=== PATIENT | female | born 1950 | race Hispanic/Latino ===

== ENCOUNTER 2018-07-04 12:42 | Emergency (ER) | payer MEDICARE ==
[~2018-07-04] VITALS: Ht 152.4 cm; Wt 54.4 kg
--- NOTE | 2018-07-04 14:05 | Diagnostic Imaging Report ---
EXAMINATION: PA and lateral views of the chest. COMPARISON: None CLINICAL HISTORY: Cough, flulike symptoms today DISCUSSION: Lines/tubes: None. Lungs: The lungs are well inflated and clear. There is no evidence of pneumonia or pulmonary edema. Pleura: There is no pleural effusion or pneumothorax. Heart and mediastinum: Cardiomediastinal silhouette is unremarkable. Pulmonary vasculature is normal. Bones and soft tissues: No acute bony abnormalities. Sternotomy wires. IMPRESSION: No acute cardiopulmonary abnormalities. Signed by: Dr. Alan Bell M.D. on 07/04/2018 2:01 PM
== END 2018-07-04 14:22 | disposition home or self-care (01) ==
LOC: FSED 12:42
DX: R05 Cough (principal); J20.9 Acute bronchitis, unspecified
CPT/HCPCS: 71046; 87400; 99284

== ENCOUNTER 2019-10-13 11:41 | Observation (INO) | payer MEDICARE ==
[~2019-10-13] VITALS: Ht 152.4 cm; Wt 64.6 kg
[2019-10-13] MEDS ORDERED: ASPIRIN 81 MG CHEW TAB PO ONE ×2 (12:45→13:30)
[2019-10-13 12:50] LABS: BASOPHILS # (AUTO) 0.1 (0.0-0.1); BASOPHILS % 0.4 % (0.0-1.0); EOSINOPHILS # (AUTO) 0.2 (0.0-0.4); EOSINOPHILS % 1.8 % (0.0-6.0); HEMATOCRIT 36.6 % (34.2-44.1); HEMOGLOBIN 11.2 g/dL (12.0-16.0); LYMPHOCYTES # (AUTO) 3.5 (1.0-3.2); LYMPHOCYTES % 29.6 % (18.0-39.1); MEAN CORPUSCULAR HEMOGLOBIN 25.6 pg (28-32); MEAN CORPUSCULAR HGB CONC 30.6 g/dL (31-35); MEAN CORPUSCULAR VOLUME 83.8 fL (81-99); MONOCYTES # (AUTO) 0.7 (0.2-0.8); MONOCYTES % 5.8 % (4.4-11.3); NEUTROPHILS # (AUTO) 7.2 (2.1-6.9); NEUTROPHILS % 61.9 % (38.7-80.0); PLATELET COUNT 281 x10e3/uL (140-360); RED BLOOD COUNT 4.37 x10e6/uL (3.6-5.1); RED CELL DISTRIBUTION WIDTH 13.9 % (11.7-14.4)
[2019-10-13 13:03] LABS: INR 0.88; PARTIAL THROMBOPLASTIN TIME 28.2 seconds (23.8-35.5); PROTHROMBIN TIME 12.4 seconds (11.9-14.5)
[2019-10-13 13:12] LABS: ALANINE AMINOTRANSFERASE 11 IU/L (0-55); ALBUMIN 3.6 g/dL (3.5-5.0); ALKALINE PHOSPHATASE 86 IU/L (40-150); ANION GAP 16.8 mmol/L (8-16); BLOOD UREA NITROGEN 17 mg/dL (7-26); BUN/CREATININE RATIO 22 (6-25); CALCIUM 9.5 mg/dL (8.4-10.2); CARBON DIOXIDE 22 mmol/L (22-29); CHLORIDE 105 mmol/L (98-107); CREATINE KINASE 89 IU/L (29-168); CREATININE, SERUM 0.78 mg/dL (0.57-1.11); EST GLOMERULAR FILTRATION RATE > 60 ML/MIN (60-); GLUCOSE 106 mg/dL (74-118); POTASSIUM 3.8 mmol/L (3.5-5.1); SODIUM 140 mmol/L (136-145)
[2019-10-13] MEDS ORDERED: MORPHINE SULFATE 2 MG/ML SYR 1ML IV STA (13:17)
[2019-10-13] MEDS ORDERED: ASPIRIN 81 MG CHEW TAB PO STA (13:17)
[2019-10-13] MEDS ORDERED: ENOXAPARIN SODIUM INJ 100 MG/ML SYR SC STA (13:17)
[2019-10-13] MEDS ORDERED: ONDANSETRON HCL INJ 2MG/ML 2ML 2 MG/ML VIAL IV STA (13:17)
[2019-10-13] MEDS ORDERED: SODIUM CHLORIDE 0.9% 1000ML 1,000 ML IV STA (13:17)
[2019-10-13] MEDS ORDERED: FAMOTIDINE 20 MG/2 ML VIAL IV STA (13:17)
[2019-10-13] MEDS ORDERED: MORPHINE SULFATE 2 MG/ML SYR 1ML IV PRN (13:30)
[2019-10-13] MEDS ORDERED: DEXTROSE 50% SYRINGE 50 ML IV PRN (13:30)
[2019-10-13] MEDS ORDERED: METOPROLOL TARTRATE 25 MG TAB PO SCH (13:30)
[2019-10-13] MEDS ORDERED: ONDANSETRON HCL INJ 2MG/ML 2ML 2 MG/ML VIAL IV PRN (13:30)
[2019-10-13] MEDS ORDERED: ENOXAPARIN SODIUM INJ 100 MG/ML SYR SC SCH (13:30)
[2019-10-13] MEDS ORDERED: NITROGLYCERIN 0.4 MG SUBL SL PRN (13:30)
[2019-10-13] MEDS ORDERED: SODIUM CHLORIDE FLUSH 10 ML SYR INJ PRN (13:30)
[2019-10-13] MEDS ORDERED: ATORVASTATIN CA40 MG PO (13:53)
[2019-10-13] MEDS ORDERED: METFORMIN HCL500 MG PO (13:53)
[2019-10-13] MEDS ORDERED: PROAIR HFA INH8.5 GM INH (13:53)
[2019-10-13] MEDS ORDERED: METOPROLOL SUCC50 MG PO (13:53)
[2019-10-13] MEDS ORDERED: LOSARTAN POTAS100 MG PO (13:53)
[2019-10-13] MEDS ORDERED: LATANOPROST2.5 ML OP (13:53)
[2019-10-13] MEDS: FAMOTIDINE 20 MG/2 ML VIAL IV SCH ×2 (14:05→21:39)
[2019-10-13 14:25] LABS: CLARITY,URINE SL CLOUDY (CLEAR); COLOR,URINE YELLOW (YELLOW); LEUKOCYTE ESTERASE ,URINE NEGATIVE (NEGATIVE); NITRITE,URINE POSITIVE (NEGATIVE); PROTEIN,URINE DIPSTICK NEGATIVE (NEGATIVE)
[2019-10-13 14:26] LABS: BILIRUBIN,URINE NEGATIVE (NEGATIVE); KETONES,URINE NEGATIVE (NEGATIVE); URINE UROBILINOGEN 0.2 mg/dL (0.2 - 1)
[2019-10-13 14:45] LABS: BACTERIA,URINE MANY /HPF; WBC,URINE (MAN) 0-5 /HPF (0-5)
[2019-10-13 15:05] LABS: MAGNESIUM 1.2 MG/DL (1.3-2.1)
--- NOTE | 2019-10-13 15:17 | Diagnostic Imaging Report ---
EXAM: CHEST SINGLE (NOT PORTABLE) DATE: 10/13/2019 12:41 PM INDICATION: Chest pain COMPARISON: None FINDINGS: There are post surgical changes from prior median sternotomy. The trachea is midline. There are mildly increased bibasilar opacities suggestive of atelectasis. There is no evidence for large focal consolidation, pneumothorax, or significant pleural effusion. The cardiomediastinal silhouette is within normal limits. No acute osseous abnormalities identified. IMPRESSION: Findings suggestive of bibasilar atelectasis. No other acute cardiopulmonary process identified. Signed by: Dr. Jeronimo Ball MD on 10/13/2019 3:13 PM
[2019-10-13] MEDS: ENOXAPARIN SOD INJ 60 MG/0.6 ML SYR SC SCH ×2 (15:25→21:40)
--- NOTE | 2019-10-13 15:55 | NUR ---
PT AMBU TO BATHROOM WITH STEADY GAIT. NO ACUTE DISTRESS.
--- NOTE | 2019-10-13 16:29 | NUR ---
PT GIVEN COFFEE AND BLANKET. NO ACUTE DISTRESS. COMFORT MEASURES GIVEN
[2019-10-13] MEDS: INSULIN REGULAR, HUMAN 100 UNIT/1 ML 3ML VIAL SQ SCH ×2 (17:06→21:00)
[2019-10-13] MEDS ORDERED: MAGNESIUM SULFATE 2GM/50ML 50 ML IV ONE (17:15)
[2019-10-13] MEDS: CEFTRIAXONE SOD 1 GM/NS 50 ML 50 ML IV SCH (17:23)
--- NOTE | 2019-10-13 19:15 | NUR ---
REPORT RECEIVED FROM NICOL MENDEZ; REPORT CALLED TO MS MENDEZ; TELE BOX #[id number] ATTACHED
[2019-10-13 20:30] VITALS: BP 180/75
--- NOTE | 2019-10-13 20:51 | NUR ---
SPOKE TO DR WILL ABOUT CHEST PAIN CONSULT. MD WILL SEE PATIENT TOMORROW. NO ORDER RECEIVED AT THIS TIME
--- NOTE | 2019-10-13 20:52 | NUR ---
SPOKE TO DR CEJA WHO IS CANNERY WORKER FOR DR SHEA FOR CHANGING ATTENDING. MD WILL SEE PATIENT TOMORROW
[2019-10-13 21:00] VITALS: BP 180/75
[2019-10-13 21:30] VITALS: BP 180/75
[2019-10-13] MEDS: METOPROLOL TARTRATE 25 MG TAB PO SCH (21:39)
[2019-10-13] MEDS: SIMVASTATIN 20 MG TAB PO SCH (21:44)
[2019-10-13 21:59] LABS: CREATINE KINASE MB 1.5 ng/mL (0-5.0)
[2019-10-14] VITALS (10 sets, daily range): BP systolic 123–183; BP diastolic 59–84
[2019-10-14 05:11] LABS: BASOPHILS % 0.4 % (0.0-1.0); EOSINOPHILS # (AUTO) 0.2 (0.0-0.4); EOSINOPHILS % 2.4 % (0.0-6.0); HEMATOCRIT 32.4 % (34.2-44.1); HEMOGLOBIN 10.1 g/dL (12.0-16.0); LYMPHOCYTES % 35.5 % (18.0-39.1); MEAN CORPUSCULAR HEMOGLOBIN 25.8 pg (28-32); MEAN CORPUSCULAR HGB CONC 31.2 g/dL (31-35); MEAN CORPUSCULAR VOLUME 82.7 fL (81-99); MONOCYTES # (AUTO) 0.6 (0.2-0.8); MONOCYTES % 6.9 % (4.4-11.3); NEUTROPHILS # (AUTO) 4.6 (2.1-6.9); NEUTROPHILS % 54.4 % (38.7-80.0); PLATELET COUNT 212 x10e3/uL (140-360); RED BLOOD COUNT 3.92 x10e6/uL (3.6-5.1); RED CELL DISTRIBUTION WIDTH 14.1 % (11.7-14.4)
[2019-10-14 05:29] LABS: ALANINE AMINOTRANSFERASE 10 IU/L (0-55); ALBUMIN 3.1 g/dL (3.5-5.0); ALBUMIN/GLOBULIN RATIO 1.1 (0.8-2.0); ALKALINE PHOSPHATASE 55 IU/L (40-150); ANION GAP 11.7 mmol/L (8-16); BLOOD UREA NITROGEN 13 mg/dL (7-26); BUN/CREATININE RATIO 17 (6-25); CALCIUM 8.9 mg/dL (8.4-10.2); CARBON DIOXIDE 26 mmol/L (22-29); CHLORIDE 105 mmol/L (98-107); CHOL/HDL RATIO 2.3 (3.0-3.6); CHOLESTEROL 122 MD/DL (0-199); CREATININE, SERUM 0.78 mg/dL (0.57-1.11); EST GLOMERULAR FILTRATION RATE > 60 ML/MIN (60-); GLUCOSE 152 mg/dL (74-118); HDL CHOLESTEROL 52 MG/DL (40-60); LDL CHOLESTEROL 48 MG/DL (60-130); MAGNESIUM 1.5 MG/DL (1.3-2.1); PHOSPHORUS 3.4 MG/DL (2.3-4.7); POTASSIUM 3.7 mmol/L (3.5-5.1); SODIUM 139 mmol/L (136-145); TRIGLYCERIDES 108 MG/DL (0-149)
[2019-10-14 05:47] LABS: CREATINE KINASE MB 2.1 ng/mL (0-5.0)
[2019-10-14] MEDS: INSULIN REGULAR, HUMAN 100 UNIT/1 ML 3ML VIAL SQ SCH ×4 (08:57→21:12)
[2019-10-14] MEDS: ASPIRIN 81 MG ENTERIC COATED PO SCH (09:02)
[2019-10-14] MEDS: FAMOTIDINE 20 MG/2 ML VIAL IV SCH ×2 (09:02→20:58)
[2019-10-14] MEDS: METOPROLOL TARTRATE 25 MG TAB PO SCH ×2 (09:03→20:59)
[2019-10-14] MEDS: ENOXAPARIN SOD INJ 60 MG/0.6 ML SYR SC SCH ×2 (09:03→20:59)
[2019-10-14] MEDS ORDERED: ENOXAPARIN SOD INJ 40 MG/0.4 ML SYR SC SCH (17:00)
[2019-10-14] MEDS: CEFTRIAXONE SOD 1 GM/NS 50 ML 50 ML IV SCH (17:04)
--- NOTE | 2019-10-14 17:32 | History and Physical ---
CHIEF COMPLAINT: Chest pain. HISTORY OF PRESENT ILLNESS: This is a 69-year-old female with known history of hypertension, hyperlipidemia, history of a CABG about 20 years ago, presented to the emergency room with complaints of chest pressure that began over the last two days. After further interview, the patient reports she has been having a chest pressure ongoing for the last 3 to 4 months. She did see Cardiology last November and has not followed up since then. She reports her chest pressure is substernal with no radiation. No associated nausea, vomiting. During my interview right now, she states her chest pain is all resolved. She denies any cough, congestion, or any recent infection or fever. The patient is seen and evaluated at bedside on the medical floor. She is currently doing well with no other issues at this time. REVIEW OF SYSTEMS: Pertinent positive: For chest pressure. The rest of the 14-point review of systems are reviewed with the patient and are negative. ALLERGIES: NO KNOWN DRUG ALLERGIES. MEDICATIONS: Albuterol, losartan 100 mg daily, metformin 500 mg p.o. b.i.d., metoprolol 50 mg daily, atorvastatin 40 mg daily, losartan 100 mg daily, Zocor 20 mg daily. PAST MEDICAL HISTORY: Hypertension, hyperlipidemia, history of CABG, CAD, diabetes. PAST SURGICAL HISTORY: She had a CABG 20 years ago. FAMILY HISTORY: Hypertension, diabetes. SOCIAL HISTORY: No drugs. No alcohol. Does not smoke. She is . Good social support. PHYSICAL EXAMINATION: VITAL SIGNS: Temperature is 97, pulse 64, respiratory rate is 20, blood pressure 147/67, pulse ox 98% on room air. GENERAL: Not in acute distress. Alert and oriented x3. Cooperative on examination. HEENT: Head; normocephalic, atraumatic. Eyes; pupils are equal, round, and reactive to light bilaterally. Extraocular movements intact bilaterally. Throat; no evidence of erythema or exudates in the posterior pharynx. Has poor dentition. NECK: Supple. Good range of motion. PULMONARY: Clear to auscultation bilaterally. No wheezing, no rales, no rhonchi, no crackles appreciated. CARDIOVASCULAR: Positive S1 and S2. No murmurs, rubs, or gallops appreciated. ABDOMEN: Soft, nondistended, and nontender to palpation. Bowel sounds present. MUSCULOSKELETAL: Strength is 5/5 throughout. No evidence of any muscle deficits on examination. No weakness appreciated. NEUROLOGIC: Cranial nerves 2 through 12 grossly intact. No evidence of any neurological deficits on exam. SKIN: Intact. Warm to touch. Good cap refill. PSYCHIATRIC: Normal affect and mood. EXTREMITIES: No edema. Good range of motion throughout. LABORATORY FINDINGS: Show white count 8.3, hemoglobin 10, hematocrit 32, and platelets of 212. Coagulation PT 12, INR 0.8, PTT 28. Chemistry; sodium 139, potassium 3.7, chloride 105, bicarb 26, anion gap of 11, BUN 13, creatinine 0.78, glucose 152, calcium 8.9, phosphorus 3.4, magnesium 1.5, total bilirubin was 0.3. LFTs within normal range. CK is 58. Troponins were all negative. Albumin 3.1, LDL 48. Lipase was normal at 49. Urinalysis was mainly bacteria, likely negative. MICROBIOLOGY: None. IMAGING STUDIES: Chest x-ray findings suggested bibasilar atelectasis. Otherwise it was negative chest x-ray. IMPRESSION: 1. Chest pain, likely atypical in nature with history of coronary artery bypass grafting with coronary artery disease. 2. Type 2 diabetes. 3. Hypertension. 4. Probable urinary tract infection. PLAN: At this time, troponins have been negative. Continue with cardioprotective medications. Cardiology has been consulted. Cardiac telemetry. EKG has been reviewed. Cardiac stress test will be up to Cardiology. For her diabetes, we will put her on insulin sliding scale. Hold metformin. As for her high blood pressure, restart home medications. Put on hydralazine p.r.n. For her probable UTI, which is probably less likely she is on IV Rocephin already. No cultures were sent from the ER. PT, OT evaluation. Lovenox for DVT prophylaxis. At this time, the patient likely will be observation and be discharged likely tomorrow. MD BAKARI Oliveira/KASEY /[id number]
[2019-10-14] MEDS: SIMVASTATIN 20 MG TAB PO SCH (20:59)
[2019-10-14] MEDS: TRESIBA SC SCH (20:59)
[2019-10-15 05:24] LABS: BASOPHILS % 0.2 % (0.0-1.0); EOSINOPHILS # (AUTO) 0.3 (0.0-0.4); EOSINOPHILS % 3.5 % (0.0-6.0); HEMATOCRIT 34.2 % (34.2-44.1); HEMOGLOBIN 10.6 g/dL (12.0-16.0); LYMPHOCYTES % 35.6 % (18.0-39.1); MEAN CORPUSCULAR HEMOGLOBIN 25.7 pg (28-32); MONOCYTES # (AUTO) 0.7 (0.2-0.8); MONOCYTES % 8.3 % (4.4-11.3); NEUTROPHILS # (AUTO) 4.4 (2.1-6.9); NEUTROPHILS % 51.9 % (38.7-80.0); PLATELET COUNT 227 x10e3/uL (140-360); RED BLOOD COUNT 4.12 x10e6/uL (3.6-5.1)
[2019-10-15 05:40] LABS: ANION GAP 12.6 mmol/L (8-16); BLOOD UREA NITROGEN 13 mg/dL (7-26); BUN/CREATININE RATIO 16 (6-25); CALCIUM 9.3 mg/dL (8.4-10.2); CARBON DIOXIDE 26 mmol/L (22-29); CHLORIDE 103 mmol/L (98-107); CREATININE, SERUM 0.81 mg/dL (0.57-1.11); EST GLOMERULAR FILTRATION RATE > 60 ML/MIN (60-); GLUCOSE 169 mg/dL (74-118); POTASSIUM 3.6 mmol/L (3.5-5.1); SODIUM 138 mmol/L (136-145)
[2019-10-15 05:49] VITALS: BP 188/76
--- NOTE | 2019-10-15 06:32 | NUR ---
Spoke with Roger Chacon about the patient's elevated blood pressure. Last reading was 188/76 with a HR of 76. Dr. Duran order to increase lopressor to 50mg q12hr, and give nose now. Also to start on Nifedipine XL 30mg daily and give a dose now and contact him after to hours of giving medications with updated bp and HR. Will give the medications as soon as approved my Pharmacy and will pass on report the current orders.
--- NOTE | 2019-10-15 07:00 | NUR ---
BEDSIDE SHIFT REPORT RECEIVED FROM THE FLOAT NURSE RN. EDUCATED PT ABOUT FALL PRECAUTIONS. CALL LIGHT WITH IN EASY REACH. INSTRUCTED PT TO USE CALL LIGHT FOR ALL THE NEEDS. PT VERBALIZED UNDERSTANDING. BED IS LOW AND LOCKED. SIDE RAILS X2. PT DENIES NEEDS AT THIS TIME.
[2019-10-15] MEDS: METOPROLOL TARTRATE 50 MG TAB PO SCH ×2 (07:03→20:16)
[2019-10-15] MEDS ORDERED: NIFEDIPINE CR 30 MG TAB PO SCH (07:15)
[2019-10-15] MEDS ORDERED: INSULIN LISPRO 100 UNIT/1 ML 3ML VIAL SQ SCH (07:30)
[2019-10-15] MEDS: INSULIN REGULAR, HUMAN 100 UNIT/1 ML 3ML VIAL SQ SCH ×4 (08:00→20:16)
[2019-10-15] MEDS: ASPIRIN 81 MG ENTERIC COATED PO SCH (08:09)
[2019-10-15] MEDS: FAMOTIDINE 20 MG/2 ML VIAL IV SCH (08:11)
[2019-10-15] MEDS: ENOXAPARIN SOD INJ 60 MG/0.6 ML SYR SC SCH ×2 (08:12→20:16)
[2019-10-15 08:28] VITALS: BP 166/74
[2019-10-15] MEDS ORDERED: LOSARTAN POTASSIUM 100 MG TAB PO SCH (09:00)
[2019-10-15 09:12] VITALS: BP 166/74
--- NOTE | 2019-10-15 10:00 | NUR ---
PAGED DR. DUNCAN REGARDING CONSULT.
[2019-10-15 11:17] VITALS: BP 130/61
[2019-10-15] MEDS ORDERED: ONDANSETRON HCL 4 MG ORAL DISINTEGRATING TAB PO PRN (11:30)
--- NOTE | 2019-10-15 13:36 | NUR ---
DR. CEJA AT BEDSIDE.
--- NOTE | 2019-10-15 13:53 | NUR ---
Pt pending cardiology clearance for dc. Dr. Puentes notified that pt is 2 day obs. He states will see pt today.
[2019-10-15 15:36] VITALS: BP 148/66
[2019-10-15] MEDS: CEFTRIAXONE SOD 1 GM/NS 50 ML 50 ML IV SCH (16:47)
[2019-10-15] MEDS ORDERED: SODIUM CHLORIDE 0.9% 250ML 250 ML ONE (16:55)
--- NOTE | 2019-10-15 17:50 | NUR ---
DR. Segundo HI AT BEDSIDE.
[2019-10-15] MEDS ORDERED: RANEXA500 MG PO ×2 (17:58→20:59)
[2019-10-15] MEDS ORDERED: ISOSORBIDE MONO20 MG PO ×2 (17:58→20:59)
--- NOTE | 2019-10-15 18:00 | NUR ---
JAMESON TO D/C PT PER DR. Segundo HI.
--- NOTE | 2019-10-15 18:05 | NUR ---
PAGED DR. CEJA AND INFORMED ABOUT CARDIOLOGY CLEARANCE. DR. CEJA WILL CALL BACK REGARDING D/C PLAN. MAY D/C TOMORROW PER DR. CEJA. INFORMED THE SAME TO THE PT AND AT BEDSIDE.
--- NOTE | 2019-10-15 19:00 | NUR ---
BEDSIDE SHIFT REPORT GIVEN TO THE PERCHER RN. PT DENIED FURTHER NEEDS.
--- NOTE | 2019-10-15 19:35 | NUR ---
Received bedside report from day nurse. Patient resting in bed, no s/s of distress or c/o pain at this time. All safety measures in place. Will continue to monitor.
--- NOTE | 2019-10-15 20:10 | NUR ---
Patient okay to NE home per Dr. Saunders.
[2019-10-15 20:12] VITALS: BP 134/67
[2019-10-15] MEDS: SIMVASTATIN 20 MG TAB PO SCH (20:16)
[2019-10-15] MEDS: TRESIBA SC SCH ×2 (20:17→20:26)
[2019-10-15] MEDS ORDERED: ASPIRIN81 MG PO (20:56)
[2019-10-15] MEDS ORDERED: CEFDINIR300 MG PO (20:57)
[2019-10-15] MEDS ORDERED: FAMOTIDINE 20 MG TAB PO SCH (21:00)
--- NOTE | 2019-10-16 03:05 | Consultation ---
DATE OF CONSULTATION: 10/15/2019 Cardiology Consult Note. REASON FOR CONSULTATION: Chest pain. CHIEF COMPLAINT: Chest pain. HISTORY OF PRESENT ILLNESS: The patient is a 69-year-old female with history of diabetes, hypertension, hyperlipidemia, coronary artery disease, status post CABG many years ago, who presents with chest pain upon exertion and emotional excitement, now ongoing for several months. She was concerned that as she had not had any heart related workup for the last 20 years and wanted to be checked out. Denies any rest pain or heart failure symptoms. PAST MEDICAL HISTORY: Hypertension, hyperlipidemia, diabetes, and coronary artery disease status post CABG, 20 years ago. PAST SURGICAL HISTORY: Coronary artery bypass graft surgery, 20 years ago. FAMILY HISTORY: Noncontributory. SOCIAL HISTORY: She does not smoke, drink, or abuse drugs. OUTPATIENT MEDICATIONS: Please see MAR. ALLERGIES: REVIEWED. NO KNOWN DRUG ALLERGIES. REVIEW OF SYSTEMS: As per HPI, otherwise negative. PHYSICAL EXAMINATION: VITAL SIGNS: Temperature afebrile, pulse 74, respiratory rate 18, blood pressure 130/61, saturating 97% on room air. GENERAL: Elderly female, in no acute distress. CARDIOVASCULAR: Regular rate and rhythm. No murmurs, rubs, or gallops. LUNGS: Clear to auscultation bilaterally. ABDOMEN: Obese, soft, nontender, and nondistended. NEURO AND PSYCH: Alert and oriented to person, place, and time. Normal affect. EXTREMITIES: No edema. Palpable pulses. No ulcers. INPATIENT MEDICATIONS: Reviewed. LABORATORY DATA: Reviewed. Troponins negative x3. White count was 1.7 on admission, now improved to 8.4. GFR is normal. IMAGING DATA: Reviewed. Chest x-ray shows no acute abnormalities. Echocardiogram showed normal LV function. EKG showed no acute ischemic changes. Baseline left bundle branch block, which is unchanged from prior EKGs. TELEMETRY DATA: Reviewed. Shows normal sinus rhythm. ASSESSMENT AND PLAN: 1. Coronary artery disease with stable angina. 2. Hypertension. 3. Hyperlipidemia. 4. Diabetes. PLAN: The patient is only on low-dose metoprolol as an antianginal therapy and blood pressure has been running. We will add additional antianginals and have her follow up in clinic in a week. If she is still having exertional angina, that is life-limiting. We will proceed with coronary angiography as an outpatient. The patient is okay to be discharged from cardiovascular standpoint. Currently, has normal echo and ruled out for acute KS. So, she can be discharged with close Cardiology followup. Thank you for this consult. We will continue to follow. MD NEW Thrasher/KASEY /[id number]
--- OUTSIDE RECORDS SUMMARY | 2019-10-16 13:14 | XMS REPORT ---
Author [facility] Address Unknown Phone Unavailable Care Team Providers Care Varnish Thinner Name Role Phone ALEX BLEDSOE Unavailable Unavailable SWEET, A LAIRD Unavailable Unavailable Problems This patient has no known problems. Allergies, Adverse Reactions, Alerts This patient has no known allergies or adverse reactions. Medications This patient has no known medications. Results Test Description Test Time Test Comments Text Results Atomic Results Result Comments CHEST SINGLE (NOT PORTABLE) 2019-10-13 15:09:00 [place] [address] Patient Name: MAXI JONES MR #: [id number] : 1950 Age/Sex: 69/F Req #: [id number] Adm Physician: ALEX BLEDSOE MD Ordered by: ARIEL MAHMOOD MD, MD Report #: [id number] Location: [facility] Room/Bed: [place] [address] Procedure: [id number] DX/CHEST SINGLE (NOT PORTABLE) Exam Date: 10/13/19 Exam Time: 1400 REPORT STATUS: Signed EXAM: CHEST SINGLE (NOT PORTABLE) DATE: 10/13/2019 12:41 PM INDICATION: Chest pain COMPARISON: None FINDINGS: There are post surgical changes from prior median sternotomy. The trachea is midline. There are mildly increased bibasilar opacities suggestive of atelectasis. There is no evidence for large focal consolidation, pneumothorax, or significant pleural effusion. The cardiomediastinal silhouette is within normal limits. No acute osseous abnormalities identified. IMPRESSION: Findings suggestive of bibasilar atelectasis. No other acute cardiopulmonary process identified. Signed by: Dr. Jeronimo Ball MD on 10/13/2019 3:13 PM Dictated By: JERONIMO BALL MD 12 Transcribed By: MICKEY on 10/13/191512 COPY TO: ARIEL MAHMOOD CXR 2 VIEW - HOPD 2018-07-04 14:01:00 [place] [address] Patient Name: MAXI JONES MR #: [id number] : 1950 Age/Sex: 67/F Req #: [id number] Adm Physician: Ordered by: KATINA FELIX MD Report #: [id number] Location: [facility] Room/Bed: Procedure: [id number] HOPD/CXR 2 VIEW - HOPD Exam Date: 07/04/18 Exam Time: 1350 REPORT STATUS: Signed EXAMINATION: PA and lateral views of the chest. COMPARISON: None CLINICAL HISTORY: Cough, flulike symptoms today DISCUSSION: Lines/tubes: None. Lungs: The lungs are well inflated and clear. There is no evidence of pneumonia or pulmonary edema. Pleura: There is no pleural effusion or pneumothorax. Heart and mediastinum: Cardiomediastinal silhouette is unremarkable. Pulmonary vasculature is normal. Bones and soft tissues: No acute bony abnormalities. Sternotomy wires. IMPRESSION: No acute cardiopulmonary abnormalities. Signed by: Dr. Glenis Bell M.D. on 07/04/2018 2:01 PM Dictated By: GLENIS BELL MD 140 Transcribed By: MICKEY on 07/04/18 140 COPY TO: KATINA FELIX MD
--- NOTE | 2019-10-16 19:11 | Discharge Summary ---
FINAL DISCHARGE DIAGNOSES: 1. Atypical chest pain. 2. History of coronary artery disease with a coronary artery bypass grafting in the past. 3. Type 2 diabetes. 4. Hypertension. 5. Probable urinary tract infection. CONSULTANTS: Cardiology PHYSICAL EXAMINATION: VITAL SIGNS: Temperature is 97.4, pulse 70, respiratory rate is 18, blood pressure 134/67, and pulse ox 96% on room air. LABORATORY FINDINGS: Show white count 8.4, hemoglobin 10.6, hematocrit is 34, and platelets of 227. Coagulation; PT 12, INR 0.88, and PTT 28. Chemistry; sodium 138, potassium 3.6, chloride 103, bicarb 26, anion gap of 12, BUN 13, creatinine is 0.81. Glucose point of care was 192, calcium was 9.3, phosphorus was 3.4, and magnesium was 1.5. LFTs were within normal range. Troponins were negative. LDL was 48. Lipase level was 49. Urinalysis negative. MICROBIOLOGY: None. IMAGING STUDIES: Chest x-ray shows bibasilar atelectasis. No other acute cardiopulmonary process. HOSPITAL COURSE: This is a 69-year-old female, who came into the emergency room with complaints of underlying chest pain and admitted under observation for further management and care. The patient's cardiac enzymes were found to be negative. EKG showed no acute findings. The patient was on cardiac telemetry showed no acute issues. Cardiology was consulted. Cardiology added some Ranexa as well as some Imdur for angina pain. At this time, Cardiology does not recommend any further intervention. She was advised to follow up as an outpatient in their office in the next 1 week for further testing. The patient was cleared for discharge by Cardiology. As for her diabetes and blood pressure, medications were adjusted accordingly with much improved blood pressure. She did have a probable UTI, but the ER did not send the sample for culture. The patient was maintained on IV antibiotics here, which she tolerated well. She had no more evidence of dysuria and was discharged on oral Omnicef equivalent to Rocephin. On discharge, the patient was doing well, back to normal baseline. On the day of discharge, vital signs were stable, labs reviewed and stable. The patient is seen and evaluated, and examined thoroughly on the day of discharge. No other complaints. The patient verbalized understanding and agrees to plan of care to follow up accordingly as an outpatient with the primary care physician in 1 week and the supervisor cook house in 1 to 2 weeks' time. MEDICATIONS: See med reconciliation form. DISPOSITION: Home. CONDITION: Stable. DIET: Heart healthy. In the event of any worsening symptoms, the patient was advised to come back to the ED for further evaluation. Discharge summary took greater than 35 minutes. MD BAKARI Oliveira/KASEY /[id number]
[2019-10-23] MEDS ORDERED: FAMOTIDINE20 MG PO (05:47)
== END 2019-10-15 20:55 | disposition home or self-care (01) ==
LOC: ER 11:41 → INTOOBSV 13:27 → ERHOLD 13:27 → MED/SURG2 20:26
PROVIDERS: ADMIT Internal Medicine; ATTEND Internal Medicine
DX: R07.89 Other chest pain (principal); I25.118 Atherosclerotic heart disease of native coronary artery with other forms of angina pectoris; I10 Essential (primary) hypertension; E78.5 Hyperlipidemia, unspecified; Z95.1 Presence of aortocoronary bypass graft; E11.9 Type 2 diabetes mellitus without complications; Z79.82 Long term (current) use of aspirin; Z79.84 Long term (current) use of oral hypoglycemic drugs
CPT/HCPCS: 36415 ×3; 71045; 80048; 80053 ×2; 80061; 81001; 82550 ×2; 82553 ×2; 82948 ×3; 83690; 83735 ×2; 84100; 84484 ×2; 85025 ×3; 85610; 85730; 93005; 93306; 99284; G0378 ×3; J0696 ×3; J1650 ×3; J1817; J3475; J7030; J7050

== ENCOUNTER 2019-12-04 09:44 | Observation (INO) | payer MEDICARE ==
[2019-12-02 10:42] LABS: BASOPHILS % 0.2 % (0.0-1.0); EOSINOPHILS # (AUTO) 0.2 (0.0-0.4); HEMATOCRIT 34.3 % (34.2-44.1); HEMOGLOBIN 10.7 g/dL (12.0-16.0); LYMPHOCYTES # (AUTO) 2.6 (1.0-3.2); LYMPHOCYTES % 30.3 % (18.0-39.1); MEAN CORPUSCULAR HEMOGLOBIN 25.9 pg (28-32); MEAN CORPUSCULAR HGB CONC 31.2 g/dL (31-35); MEAN CORPUSCULAR VOLUME 83.1 fL (81-99); MONOCYTES # (AUTO) 0.6 (0.2-0.8); MONOCYTES % 6.6 % (4.4-11.3); NEUTROPHILS # (AUTO) 5.1 (2.1-6.9); NEUTROPHILS % 60.5 % (38.7-80.0); PLATELET COUNT 225 x10e3/uL (140-360); RED BLOOD COUNT 4.13 x10e6/uL (3.6-5.1); RED CELL DISTRIBUTION WIDTH 15.2 % (11.7-14.4)
[2019-12-02 10:52] LABS: INR 0.94; PROTHROMBIN TIME 12.8 seconds (11.9-14.5)
[2019-12-02 11:03] LABS: ANION GAP 15.7 mmol/L (8-16); CALCIUM 9.6 mg/dL (8.4-10.2); CREATININE, SERUM 0.94 mg/dL (0.57-1.11); POTASSIUM 4.7 mmol/L (3.5-5.1)
[~2019-12-04] VITALS: Ht 152.4 cm; Wt 63.5 kg
[~2019-12-04 09:44] MED LIST: ASPIRIN81 MG PO; ATORVASTATIN CA40 MG PO; CEFDINIR300 MG PO; FAMOTIDINE20 MG PO; ISOSORBIDE MONO20 MG PO; LATANOPROST2.5 ML OP; LOSARTAN POTAS100 MG PO; METFORMIN HCL500 MG PO; METOPROLOL SUCC50 MG PO; PROAIR HFA INH8.5 GM INH; RANEXA500 MG PO
[2019-12-04 10:00] VITALS: BP 175/65
[2019-12-04] MEDS ORDERED: HUMALOG KW200 UNIT/1 SC (10:18)
[2019-12-04] MEDS ORDERED: PEPCID AC10 MG PO (10:18)
[2019-12-04] MEDS ORDERED: TRESIBA FL100 UNIT/1 SC (10:18)
[2019-12-04] MEDS ORDERED: DORZOLAMIDE HCL10 ML OP (10:18)
[2019-12-04] MEDS ORDERED: BACITRACIN 50,000 UNIT VIAL ONE (10:23)
[2019-12-04] MEDS ORDERED: SODIUM CHLORIDE 0.9% 50ML 0 ML ONE (10:23)
[2019-12-04] MEDS ORDERED: LIDOCAINE HCL 2% LOCAL 20 ML VIAL ONE (10:23)
[2019-12-04] MEDS ORDERED: FENTANYL CITRATE/PF 100MCG/2 ML INJ ONE (10:23)
[2019-12-04] MEDS ORDERED: MIDAZOLAM HCL 2 MG/2 ML VIAL ONE ×2 (10:23→11:21)
[2019-12-04] MEDS ORDERED: CEFAZOLIN SOD 1 GM VIAL ONE (10:23)
[2019-12-04] MEDS ORDERED: SODIUM CHLORIDE 0.9% 1000ML 2,000 ML ONE (10:24)
[2019-12-04] MEDS ORDERED: SODIUM CHLORIDE 0.9% 500ML 500 ML ONE (10:24)
[2019-12-04] MEDS ORDERED: VANCOMYCIN 1GM/NS 250 ML 250 ML ONE (11:07)
[2019-12-04] MEDS ORDERED: PHENYLEPHRINE HCL 1% 10 MG/ML VIAL ONE (11:32)
[2019-12-04] MEDS ORDERED: SODIUM CHLORIDE 0.9% 50ML 50 ML ONE (11:32)
[2019-12-04 12:43] VITALS: BP 145/65
[2019-12-04] MEDS ORDERED: DEXTROSE 50% SYRINGE 50 ML IV PRN (12:45)
[2019-12-04 12:58] VITALS: BP 184/85
[2019-12-04] MEDS ORDERED: ALBUTEROL SULFATE HFA 8GM INHALATION AEROSOL INH PRN (13:15)
[2019-12-04] MEDS ORDERED: MORPHINE SULFATE 2 MG/ML SYR 1ML IV PRN (13:15)
--- NOTE | 2019-12-04 14:25 | Diagnostic Imaging Report ---
Chest, 1 view, 12/04/2019. History: ICD placement. Comparison: 10/21/2019. Findings: The cardiomediastinal silhouette and pulmonary vasculature are within normal limits for a portable exam. There is no focal consolidation or pleural effusion. There is no evidence of a pneumothorax. Left subclavian ICD is present. Median sternotomy wires are unchanged. There are no acute osseous or soft tissue abnormalities. Impression: No evidence of complication post left subclavian AICD placement. Signed by: Justice Pierce on 12/04/2019 2:22 PM
[2019-12-04] MEDS: INSULIN REGULAR, HUMAN 100 UNIT/1 ML 3ML VIAL SQ SCH ×2 (16:38→20:08)
[2019-12-04 16:48] VITALS: BP 131/65
[2019-12-04] MEDS: DORZOLAMIDE HCL (OPTH) 10 ML BOTTLE OP SCH (16:48)
[2019-12-04] MEDS: RANOLAZINE 500 MG TABSR PO SCH (16:48)
[2019-12-04] MEDS ORDERED: METFORMIN HCL 500 MG TAB PO SCH (17:00)
[2019-12-04 19:39] VITALS: BP 143/65
[2019-12-04 20:07] VITALS: BP 143/65
[2019-12-04] MEDS ORDERED: LATANOPROST(OPTH) 2.5 ML BTL OP SCH (21:00)
[2019-12-04] MEDS ORDERED: FAMOTIDINE 20 MG PO SCH (21:00)
[2019-12-04] MEDS ORDERED: ATORVASTATIN 40 MG TAB PO SCH (21:00)
[2019-12-04] MEDS ORDERED: NON-FORMULARY MEDICATION (Atorvastatin Calcium 40 MG) PO SCH (21:00)
[2019-12-04] MEDS ORDERED: INSULIN DEGLUDEC SC SCH (21:00)
[2019-12-04] MEDS ORDERED: FAMOTIDINE 20 MG TAB PO SCH (21:00)
[2019-12-05 00:31] VITALS: BP 177/80
--- NOTE | 2019-12-05 00:51 | Operative Report ---
DATE OF PROCEDURE: 12/04/2019 SURGEON: Timi Zaragoza MD PREPROCEDURE DIAGNOSES: 1. 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 2. Congestive heart failure, class 3. 3. Left bundle-branch block. POSTPROCEDURE DIAGNOSES: 1. 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 2. Congestive heart failure, class 3. 3. Left bundle-branch block. ESTIMATED BLOOD LOSS: 10 mL. COMPLICATIONS: None. PROCEDURES PERFORMED: 1. Biventricular cardiac defibrillator placement. 2. Moderate sedation. Moderate conscious sedation was provided under my direct supervision by a sedation trained nurse. Sedation approximate time 60 minutes. Versed and fentanyl, there were no complications. See sedation form for details. DESCRIPTION OF PROCEDURE: After informed consent was obtained, the patient was brought to the electrophysiology laboratory in a fasting, nonsedated state. The area over her chest was prepped and draped in the usual sterile fashion. Moderate sedation and prophylactic antibiotics were given. 1% lidocaine was used as local anesthetic and a 3 cm skin incision was made over the left subclavicular area. Electrocautery sharp and blunt dissection were used to bridge the muscular fascia and a pocket was created for event implantation of the device. Vascular access was obtained x3 in the left axillary vein using modified Seldinger technique under fluoroscopy guidance. Three sheaths were placed. Ventricular lead advanced to the RV apex, R-wave #9, pacing 0.7 at 2.4, impedance 1500. The coronary sinus was cannulated using AL2 catheter and Uvaldo wire. Coronary sinus angiogram demonstrated a posterolateral branch, successfully cannulated. The lead was advanced there with a pacing threshold of 2.7 at 1.0. No phrenic stimulation. Then, the atrial lead to the right atrial appendage P-wave 3, pacing 1 at 0.4, impedance 600. Sheaths were removed from the body. Leads were secured to fascia using Ethibond. Of note, the LV lead was capped in the proximal location of the branch because the distal sites had no capture. The pocket was irrigated with antibiotic solution using a pulse monotypist. Hemostasis was meticulous. Leads were connected to the device and entire ICD system placed in the pocket. Incision was closed using absorbable sutures and Dermabond. We used vancomycin powder inside the pocket. The patient tolerated the procedure well. Procedure was then complete. SUMMARY OF HARDWARE IMPLANTED: 1. The new defibrillator is [employer], serial #[id number]. 2. The atrial lead is [employer] [id number]. 3. The right ventricular lead is [employer] [id number]. 4. The left ventricular lead is [employer] [id number]. IMPRESSION: Successful biventricular cardiac defibrillator placement via left axillary vein. PLAN: 1. Routine postop monitoring on telemetry bed. 2. Chest x-ray. 3. Follow up in 2 weeks. MD RANDALL Reynolds/MODL /[id number]
[2019-12-05 05:31] VITALS: BP 181/84
[2019-12-05] MEDS: DORZOLAMIDE HCL (OPTH) 10 ML BOTTLE OP SCH (08:36)
[2019-12-05] MEDS: INSULIN REGULAR, HUMAN 100 UNIT/1 ML 3ML VIAL SQ SCH ×2 (08:36→12:18)
[2019-12-05] MEDS: RANOLAZINE 500 MG TABSR PO SCH (08:39)
[2019-12-05 08:44] VITALS: BP 161/87
[2019-12-05 08:48] VITALS: BP 161/87
[2019-12-05] MEDS ORDERED: ISOSORBIDE MONONITRATE 20 MG TAB PO SCH (09:00)
[2019-12-05] MEDS ORDERED: LOSARTAN POTASSIUM 100 MG TAB PO SCH (09:00)
[2019-12-05] MEDS ORDERED: METOPROLOL SUCCINATE 50 MG TAB XL PO SCH (09:00)
[2019-12-05] MEDS ORDERED: ASPIRIN 81 MG CHEW TAB PO SCH (09:00)
[2019-12-05] MEDS ORDERED: ISOSORBIDE MONONITRATE 30 MG TAB CR PO SCH (09:00)
[2019-12-05 12:38] VITALS: BP 121/70
== END 2019-12-05 15:58 | disposition home or self-care (01) ==
LOC: CATH LAB 09:44 → CATH LAB V 12:19 → MED/SURG 12:39 → EDSTATUS 13:00
PROVIDERS: ADMIT Internal Medicine; ATTEND Internal Medicine
DX: I44.7 Left bundle-branch block, unspecified (principal); I42.0 Dilated cardiomyopathy; I50.42 Chronic combined systolic (congestive) and diastolic (congestive) heart failure; Z01.810 Encounter for preprocedural cardiovascular examination; Z01.812 Encounter for preprocedural laboratory examination; I11.0 Hypertensive heart disease with heart failure
CPT/HCPCS: 33225; 33249; 36415; 71045; 80048; 82948; 85025; 85610; 93005; 99152; 99153; C1769; G0378; J0690; J1817; J2001; J2250; J2270; J2370; J3010; J3370; J7030; J7040

== ENCOUNTER 2020-03-22 23:19 | Observation (INO) | payer MEDICARE, OTHER ==
[~2020-03-22] VITALS: Ht 152.4 cm; Wt 63.0 kg
[~2020-03-22 23:19] MED LIST changes: +DORZOLAMIDE HCL10 ML OP; +HUMALOG KW200 UNIT/1 SC; +PEPCID AC10 MG PO; +TRESIBA FL100 UNIT/1 SC
[2020-03-22] MEDS ORDERED: ONDANSETRON HCL INJ 2MG/ML 2ML 2 MG/ML VIAL IV STA (23:22)
[2020-03-22] MEDS ORDERED: MORPHINE SULFATE 2 MG/ML SYR 1ML IV STA (23:22)
--- OUTSIDE RECORDS SUMMARY | 2020-03-22 23:22 | XMS REPORT ---
Author Author [facility] t Organization [facility] Address [address] [facility] 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 Name Role Phone ALEX BLEDSOE MD PCP ASA CORADO Attphys Unavailable MAHESH SHEA Attphycecelia Unavailable LADI SOUBHUMIKAIL Attphys Unavailable Davie FELIX Attphys Unavailable ASA CORADO Admphys Unavailable MAHESH SHEA Admphys Unavailable BLEDSOE, SOUHEIL Admphys Unavailable Payers Payer Name Policy Type Policy Number Effective Date Expiration Date Cecelia verdin [facility] [id number] 2018 00:00:00 [facility] Henrietta Yu [id number] 2018 00:00:00 [facility] Problems Condition Name Condition Details Condition Category Status Onset Date Resolution Date Last Treatment Date Treating Clinician Comments Source Chest pain Chest pain Problem Active C [facility] Dyspnea Dyspnea Problem Active [facility] Hypertension Hypertension Problem Active [facility] Hypomagnesemia Hypomagnesemia Problem Active [facility] Urinary tract infection UTI (urinary tract infection) Problem Active [facility] Allergies, Adverse Reactions, Alerts This patient has no known allergies or adverse reactions. Medications Ordered Medication Name Filled Medication Name Start Date Stop Da te Current Medication? Ordering Clinician Indication Dosage Frequency Signature (SIG) Comments Components Source Famotidine 20 Mg Tab, 20 Mg Oral Famotidine 20 Mg Tab, 20 Mg Oral 2019-10-23 00:00:00 2019-12-04 00:00:00 No Mahesh Shea Md 20 Every 12 Hours [facility] Albuterol Sulfate (Proair Hfa Inhaler*) 8.5 Gm Inh Alb uterol Sulfate (Proair Hfa Inhaler*) 8.5 Gm Inh Yes 2 As Needed [facility] Aspirin 81 Mg Tab.chew Aspirin 81 Mg Tab.chew Yes 81 Daily [facility] Atorvastatin Calcium 40 Mg Tablet Atorvastatin Calcium 40 Mg Tablet Yes 40 Bedtime [facility] Dorzolamide Hcl 10 Ml Drops Dorzolamide Hcl 10 Ml Drops Yes 1 Twice A Day [facility] Famotidine (Pepcid Ac) 10 Mg Tablet Famotidine (Pepcid Ac) 10 Mg Tabl et Yes 20 Bedtime [facility] Insulin Degludec (Tresiba Flextouch U-100) 100 Unit/1 Ml Insuln.pen Insulin Degludec (Tresiba Flextouch U-100) 100 Unit/1 Ml Insuln.pen Yes 18 Bedtime [facility] Insulin Lispro (Humalog Kwikpen U-200) 200 Unit/1 Ml I nsuln.pen Insulin Lispro (Humalog Kwikpen U-200) 200 Unit/1 Ml Insuln.pen Yes 8 Twice A Day [facility] Isosorbide Mononitrate 20 Mg Tablet Isosorbide Mononitrate 20 Mg Tabl et Yes 60 Daily [facility] Latanoprost 2.5 Ml Drops Latanoprost 2.5 Ml Drops Yes 1 Bedtime [facility] Losartan Potassium 100 Mg Tablet Losartan Potassium 100 Mg Tablet Yes 100 Daily [facility] Metformin Hcl 500 Mg Tablet Metformin Hcl 500 Mg Tablet Yes 2 Twice A Day [facility] Metoprolol Succinate 50 Mg Tab.er.24h Metoprolol Succinate 50 Mg Ta b.er.24h Yes 50 Daily [facility] Ranolazine (Ranexa) 500 Mg Tabsr Ranolazine (Ranexa) 500 Mg Tabsr Yes 500 Twice A Day [facility] Cefdinir (Omnicef) 300 Mg Capsule, 300 Mg Oral Cefdini r (Omnicef) 300 Mg Capsule, 300 Mg Oral 2019-10-23 00:00:00 No 300 Twi ce A Day [facility] Isosorbide Mononitrate 20 Mg Tablet, 60 Mg Oral Isosor bide Mononitrate 20 Mg Tablet, 60 Mg Oral 2019-10-22 00:00:00 No 60 Daily [facility] Ranolazine (Ranexa) 500 Mg Tabsr, 500 Mg Oral Ranolazi ne (Ranexa) 500 Mg Tabsr, 500 Mg Oral 2019-10-22 00:00:00 No 500 Twice A Day [facility] Procedures Procedure Date / Time Performed Performing Clinician Sourc e L HRT ART/GRFT ANGIO 2019-10-21 00:00:00 JUSTIN IH V [facility] X-ray of chest, single view 2019-10-13 00:00:00 ARIEL MAHMOOD [facility] Encounters Start Date/Time End Date/Time Encounter Type Admission Type [facility] Facility Care Department Encounter ID Source 2019-12-04 12:19:00 2019-12-05 15:58:00 Discharged Inpatient (obs) 3 ASA NEVAREZ [facility] [id number] [facility] 2019-10-21 23:37:00 2019-10-23 17:21:00 Discharged Inpatient (obs) 1 MAHESH SHEA [facility] [id number] [facility] 2019-10-13 13:27:00 2019-10-15 20:55:00 Discharged Inpatient (obs) 1 ALEX BLEDSOE [facility] [id number] [facility] 2018-07-04 12:42:00 2018-07-04 14:22:00 Departed Emergency Room 1 KATINA FELIX [facility] [id number] [facility] Results Test Description Test Time Test Comments Results Result Comments Source Bedside Glucose 2019-12-05 12:03:00 Test Item Bedside Glucose (test code = 73124-1) 257 70-120 Meter ID: [id number]-12-04 14:21:00 [place] [address] Patient Name: MAXI JONES MR #: [id number] : 1950 Age/Sex: 69/F Req #: [id number] Adm Physician: ASA CORADO MD Ordered by: ASA CORADO MD Report #: [id number] Location: MED/SURG Room/Bed: [facility] Procedure: [id number] DX/CHEST SINGLE (PORTABLE) Exam Date: 12/04/19 Exam Time: 1357 REPORT STATUS: Signed Chest, 1 view, 12/04/2019. History: ICD placement. Co mparison: 10/21/2019. Findings: The cardiomediastinal silhouette and pulmon elizabeth vasculature are within normal limits for a portable exam. There is no foca l consolidation or pleural effusion. There is no evidence of a pneumothorax. L eft subclavian ICD is present. Median sternotomy wires are unchanged. There ar e no acute osseous or soft tissue abnormalities. Impression: No evide nce of complication post left subclavian AICD placement. Signed by: Justice Pierce on 12/04/2019 2:22 PM Dictated By: JUSTICE PIERCE MD 1422 Transcribed By: MICKEY on 0 1422 COPY TO: ASA CORADO MD Sodium Unfry7589-95-03 11:04:00* Test Item Value Reference Range Interpretation Comments Sodium Level (test code = 2951-2) 139 136-145 [facility] Yfswy0507-15-51 11:04:00* Test Item Value Reference Range Interpretation Comments Potassium Level (test code = 2823-3) 4.7 3.5-5.1 [facility]Chloride Aeqhr6342-57-87 11:04:00* Test Item Value Reference Range Interpretation Comments Chloride Level (test code = 2075-0) 103 98-107 [facility]Carbon Dioxide Hmuop5523-86-71 11:04:00* Test Item Value Reference Range Interpretation Comments Carbon Dioxide Level (test code = 2028-9) 25 22-29 [facility] AllenAnion Mdc2193-92-05 11:04:00* Test Item Value Reference Range Interpretation Comments Anion Gap (test code = 48491-9) 15.7 8-16 [facility] Urea Wfscapgn3129-20-89 11:04:00* Test Item Value Reference Range Interpretation Comments Blood Urea Nitrogen (test code = 3094-0) 12 7-26 [facility] AllenCreatinine2020-02-05 11:04:00* Test Item Value Reference Range Interpretation Comments Creatinine (test code = 2160-0) 0.94 0.57-1.11 [facility]BUN/Creatinine Unmhv3483-99-94 11:04:00* Test Item Value Reference Range Interpretation Comments BUN/Creatinine Ratio (test code = 3097-3) 13 6-25 [facility]Estimat Glomerular Filtration Rate 2019-12-02 11:04:00* Test Item Value Reference Range Interpretation Comments Estimat Glomerular Filtration Rate (test code = 744256990) 59 >60 Ranges were taken from the National Kidney Disease Education Program and the [facility] Kidney Foundation literature.Reference ranges:60 or greater: Kqzsxh97-53 ( for 3 consecutive months): Chronic kidney disease 15 or less: Kidney failureTexas Health AllenGlucose Awjfa6013-93-91 11:04:00* Test Item Value Reference Range Interpretation Comments Glucose Level (test code = TTH2506) 169 74-118 [facility] AllenCalcium Hvyxc6713-85-78 11:04:00* Test Item Value Reference Range Interpretation Comments Calcium Level (test code = 27860-8) 9.6 8.4-10.2 [facility] AllenProthrombin Nvuf8512-70-65 10:54:00* Test Item Value Reference Range Interpretation Comments Prothrombin Time (test code = 5902-2) 12.8 11.9-14.5 [facility] AllenProthromb Time International Ratio 2019-12-02 10:54:00* Test Item Value Reference Range Interpretation Comments Prothromb Time International Ratio (test code = 6301-6) 0.94 Oral Anticoagulant Therapy INR Values:1. Low Intensity Therapy 1.5 - 2.02 . Moderate Intensity Therapy 2.0 - 3.03. High Intensity Therapy(1) 2.5 - 3. 54. High Intensity Therapy(2) 3.0 - 4.05. Panic Value INR > 5.0 [facility] AllenWhite Blood Bhauh3309-14-55 10:47:00* Test Item Value Reference Range Interpretation Comments White Blood Count (test code = 6690-2) 8.49 4.8-10.8 [facility] AllenRed Blood Prgey1317-95-31 10:47:00* Test Item Value Reference Range Interpretation Comments Red Blood Count (test code = 789-8) 4.13 3.6-5.1 [facility] AllenHemoglobin2020-02-05 10:47:00* Test Item Value Reference Range Interpretation Comments Hemoglobin (test code = 55263-2) 10.7 12.0-16.0 [facility] AllenHematocrit2020-02-05 10:47:00* Test Item Value Reference Range Interpretation Comments Hematocrit (test code = 4544-3) 34.3 34.2-44.1 [facility] AllenMean Corpuscular Vwebhw8788-71-27 10:47:00* Test Item Value Reference Range Interpretation Comments Mean Corpuscular Volume (test code = 787-2) 83.1 81-99 [facility] AllenMean Corpuscular Uvdtjydbsm5505-17-99 10:47:00* Test Item Value Reference Range Interpretation Comments Mean Corpuscular Hemoglobin (test code = 785-6) 25.9 28-32 [facility] AllenMean Corpuscular Hemoglobin Concent 2019-12-02 10:47:00* Test Item Value Reference Range Interpretation Comments Mean Corpuscular Hemoglobin Concent (test code = 786-4) 31.2 31-35 [facility] AllenRed Cell Distribution Yblzy6308-77-42 10:47:00* Test Item Value Reference Range Interpretation Comments Red Cell Distribution Width (test code = 91478-3) 15.2 11.7 -14.4 [facility] AllenPlatelet Lapel6003-55-43 10:47:00* Test Item Value Reference Range Interpretation Comments Platelet Count (test code = 777-3) 225 140-360 [facility] AllenNeutrophils (%) (Auto)2019-12-02 10:47:00 * Test Item Value Reference Range Interpretation Comments Neutrophils (%) (Auto) (test code = 31995-5) 60.5 38.7-80.0 [facility] AllenLymphocytes (%) (Auto)2019-12-02 10:47:00 * Test Item Value Reference Range Interpretation Comments Lymphocytes (%) (Auto) (test code = 736-9) 30.3 18.0-39.1 [facility] AllenMonocytes (%) (Auto)2019-12-02 10:47:00* Test Item Value Reference Range Interpretation Comments Monocytes (%) (Auto) (test code = 5905-5) 6.6 4.4-11.3 [facility] AllenEosinophils (%) (Auto)2019-12-02 10:47:00 * Test Item Value Reference Range Interpretation Comments Eosinophils (%) (Auto) (test code = 713-8) 2.0 0.0-6.0 [facility] AllenBasophils (%) (Auto)2019-12-02 10:47:00* Test Item Value Reference Range Interpretation Comments Basophils (%) (Auto) (test code = 706-2) 0.2 0.0-1.0 [facility] AllenIM GRANULOCYTES %2019-12-02 10:47:00* Test Item Value Reference Range Interpretation Comments IM GRANULOCYTES % (test code = IM GRANULOCYTES %) 0.4 0.0- 1.0 [facility] AllenNeutrophils # (Auto)2019-12-02 10:47:00* Test Item Value Reference Range Interpretation Comments Neutrophils # (Auto) (test code = 751-8) 5.1 2.1-6.9 [facility] AllenLymphocytes # (Auto)2019-12-02 10:47:00* Test Item Value Reference Range Interpretation Comments Lymphocytes # (Auto) (test code = 78863-8) 2.6 1.0-3.2 [facility] AllenMonocytes # (Auto)2019-12-02 10:47:00* Test Item Value Reference Range Interpretation Comments Monocytes # (Auto) (test code = 742-7) 0.6 0.2-0.8 [facility] AllenEosinophils # (Auto)2019-12-02 10:47:00* Test Item Value Reference Range Interpretation Comments Eosinophils # (Auto) (test code = 711-2) 0.2 0.0-0.4 [facility] AllenBasophils # (Auto)2019-12-02 10:47:00* Test Item Value Reference Range Interpretation Comments Basophils # (Auto) (test code = 704-7) 0.0 0.0-0.1 [facility] AllenAbsolute Immature Granulocyte (auto 2019-12-02 10:47:00* Test Item Value Reference Range Interpretation Comments Absolute Immature Granulocyte (auto (kannan t code = Absolute Immature Granulocyte (auto) 0.03 0-0.1 [facility] - Treadmill RPFV7096-70-69 11:21:00 [facility] [address] [place] [address] Patient Name : MAXI JONES MR #: [id number] : 1950 Age/Sex: 69/F Adm Physician : MAHESH SHEA MD Admit Date : 10/21/19 Location : MED/SURG Room/Bed : [facility] REPORT: Stephan gonzales Stress Test DATE OF STUDY: 10/22/2019 06:57:00 Stress Test - Treadmi ll ONLY PROCEDURE: Rest/stress single isotope SPECT imaging with pharmaco logic stress and gated SPECT imaging. INDICATION: Chest pain. [place] OCEDURE IN DETAIL: Pharmacologic stress testing was performed with regadenoson per protocol. The heart rate was 73 beats at rest, increased to 90 beats per minute during the regadenoson infusion. The resting blood pressure was 140/71 mmHg and decreased to 119/63 mmHg, which is a normal response. The resting e lectrocardiogram demonstrated normal sinus rhythm. There were no ST-segment c hanges suggestive of myocardial ischemia. Myocardial perfusion imaging was performed at rest following the injection of 10.8 mCi of tetrofosmin. At peak pharmacologic effect, the patient was injected with 29 mCi of tetrofosmin . Gated post-stress tomographic imaging was performed. FINDINGS: The [facility] quality of the study is fair. Left ventricular cavity is noted to be no rmal size on the rest and stress studies. SPECT images demonstrate a small se marni perfusion defect in the inferior wall on rest and stress. Gated SPECT imag ing reveals inferior hypokinesis. The left ventricular ejection fraction is c alculated to be 61%. IMPRESSION: Myocardial perfusion imaging is abnor mal. There is a small transmural scar in the inferior wall. Overall, left ve ntricular systolic function was normal with regional wall motion abnormalities as above. Harry Gross MD ABS/KASEY Job #: [id number] Signature Date Dictated By: HARRY GROSS MD Transcribed By: MODL on 10/27/19 <Electronically signed by HARRY GROSS MD><<Signature on File>>10/27/19 6088 COPY TO: Creatine Kinase MB 2019-10-22 14:33:00* Test Item Value Reference Range Interpretation Comments Creatine Kinase MB (test code = 33765-6) 2.40 0-5.0 [facility] AllenTroponin X0958-72-07 14:33:00* Test Item Value Reference Range Interpretation Comments Troponin I (test code = PQK5693) 0.068 0-0.300 [facility] AllenCreatine Lhyzkl1321-72-62 14:25:00* Test Item Value Reference Range Interpretation Comments Creatine Kinase (test code = 2157-6) 57 29-168 [facility] AllenHemoglobin A1c Yafpqok3315-87-95 06:52:00 * Test Item Value Reference Range Interpretation Comments Hemoglobin A1c Percent (test code = Hemoglobin A1c Percent) 9.3 4.0-7.0 [facility] AllenTriglycerides Lbvmc5299-68-43 06:15:00* Test Item Value Reference Range Interpretation Comments Triglycerides Level (test code = 2571-8) 87 0-149 [facility] AllenCholesterol Riraf8680-40-89 06:15:00* Test Item Value Reference Range Interpretation Comments Cholesterol Level (test code = 2093-3) 119 0-199 Less than 200 mg/dL Low Vhnx448 - 239 mg/dL Borderline Tqkr343 m g/dl and greater High Risk [facility] AllenLDL Wbzfymasosl0049-89-47 06:15:00* Test Item Value Reference Range Interpretation Comments LDL Cholesterol (test code = 2089-1) 51 60-130 [facility] AllenHDL Wtosttprbqz5786-50-00 06:15:00* Test Item Value Reference Range Interpretation Comments HDL Cholesterol (test code = 2085-9) 51 40-60 [facility] AllenCholesterol/HDL Yelev4619-27-69 06:15:00 * Test Item Value Reference Range Interpretation Comments Cholesterol/HDL Ratio (test code = 9830-1) 2.3 3.0-3.6 [facility] AllenB-Type Natriuretic Otapbcl8437-54-65 23:47:00* Test Item Value Reference Range Interpretation Comments B-Type Natriuretic Peptide (test code = 32646-8) 98.8 0-100 [facility] AllenCHEST SINGLE (PORTABLE)2019-10-21 22:58:00 [place] [address] Patient Name: MAXI JONES MR #: [id number] : 1950 Age/Sex: 69/F Req #: [id number] Adm Physician: Ordered by: PRAVEEN MONDRAGON NP Report #: [id number] Location: Room/Bed: Procedure: [id number] DX/CHEST SINGLE (PORTABLE) Exam Date: 10/21/19 Danyelle vazquez Time: 2229 REPORT STATUS: Signed Examination: Single portable AP view of the chest. COMPARISON: AP chest 10/13/2019 INDICATION: Chest pain IMPRESSION: Exam limited by soft tissue attenuation. 1. Lines and Tubes: None 2. Lungs are grossly susan ar. No consolidation or effusion. 3. Cardiomediastinal silhouette is normal. Pulmonary vasculature is normal. 4. No acute bony abnormalities. Sign ed by: Dr. Alan Hager M.D. on 10/21/2019 10:59 PM Dictated By: ERIBERTO HAGER MD 58 T ranscribed By: MICKEY on 10/21/192258 COPY TO: PRAVEEN MONDRAGON NP Magnesium Nizic4919-49-21 22:47:00* Test Item Value Reference Range Interpretation Comments Magnesium Level (test code = 25023-5) 1.3 1.3-2.1 [facility] AllenTotal Athavchrr4232-95-21 22:47:00* Test Item Value Reference Range Interpretation Comments Total Bilirubin (test code = 1975-2) 0.3 0.2-1.2 [facility] AllenAspartate Amino Transf (AST/SGOT) 2019-10-21 22:47:00* Test Item Value Reference Range Interpretation Comments Aspartate Amino Transf (AST/SGOT) (test code = Aspartate Amino Transf (AST/SGOT)) 23 5-34 [facility] AllenAlanine Aminotransferase (ALT/SGPT) 2019-10-21 22:47:00* Test Item Value Reference Range Interpretation Comments Alanine Aminotransferase (ALT/SGPT) (test code = 1742-6) 18 0-55 [facility] AllenTotal Otwslne9519-47-25 22:47:00* Test Item Value Reference Range Interpretation Comments Total Protein (test code = 2885-2) 7.1 6.5-8.1 [facility] AllenAlbumin2019-12-25 22:47:00* Test Item Value Reference Range Interpretation Comments Albumin (test code = 1751-7) 3.5 3.5-5.0 [facility] AllenGlobulin2019-12-25 22:47:00* Test Item Value Reference Range Interpretation Comments Globulin (test code = 91867-4) 3.6 2.3-3.5 [facility] AllenAlbumin/Globulin Owlvf5540-91-02 22:47:00 * Test Item Value Reference Range Interpretation Comments Albumin/Globulin Ratio (test code = 1759-0) 1.0 0.8-2.0 [facility] AllenAlkaline Drkhbccwjtf9909-99-49 22:47:00* Test Item Value Reference Range Interpretation Comments Alkaline Phosphatase (test code = 6768-6) 65 40-150 [facility] AllenActivated Partial Thromboplast Time 2019-10-21 22:35:00* Test Item Value Reference Range Interpretation Comments Activated Partial Thromboplast Time (test code = 43121-6) 25.2 23.8-35.5 [facility] AllenPhosphorus Kmcys3506-24-38 05:32:00* Test Item Value Reference Range Interpretation Comments Phosphorus Level (test code = QPW6839) 3.4 2.3-4.7 [facility] AllenCHEST SINGLE (NOT PORTABLE)2019-10-13 15:09:00 [facility] [address] [place] [address] Patient Name: MAXI JONES MR #: [id number] : 1950 Age/Sex: 69/F Req #: [id number] Adm Physician: ALEX BLEDSOE MD Ordered by: ELA LOYD, ARIEL LOYD Report #: [id number] Location: [facility] Room/Bed: [place] [address] Procedure: [id number] DX/CHEST SINGLE (NOT PORTABLE) Exam Date: 10/13/19 Exam Time: 1400 REPORT STATUS: Signed EXAM: CHEST SINGLE (NOT PORTABLE) DATE: 10/13/2019 12:41 PM INDICATION: Chest pain COMPARISON: None FINDINGS: There are post surgical changes from prior median sternotomy. The trachea is midline. Th ere are mildly increased bibasilar opacities suggestive of atelectasis. There is no evidence for large focal consolidation, pneumothorax, or significant ple ural effusion. The cardiomediastinal silhouette is within normal limits. N o acute osseous abnormalities identified. IMPRESSION: Findings kincaid ggestive of bibasilar atelectasis. No other acute cardiopulmonary process i dentified. Signed by: Dr. Jeronimo Ball MD on 10/13/2019 3:13 PM Dic tated By: JERONIMO BALL MD 1513 Transcribed By: MICKEY on 10/13/19 1513 COPY TO: ARIEL MAHMOOD Fhahno0210-77-51 15:06:00* Test Item Value Reference Range Interpretation Comments Lipase (test code = 3040-3) 49 8-78 [facility] AllenUrine JYQ9751-30-71 14:45:00* Test Item Value Reference Range Interpretation Comments Urine WBC (test code = 5821-4) 0-5 0-5 [facility] AllenU[facility] QEV6214-37-92 14:45:00* Test Item Value Reference Range Interpretation Comments Urine RBC (test code = 73953-2) NONE 0-5 [facility] AllenU[facility] Eimumfhp8393-56-53 14:45:00* Test Item Value Reference Range Interpretation Comments Urine Bacteria (test code = 72094-7) MANY NONE [facility] Epithelial Zqwas3793-73-53 14:45:00 * Test Item Value Reference Range Interpretation Comments Urine Epithelial Cells (test code = 13154-7) NONE NONE [facility] AllenU[facility] Brkob4428-04-86 14:26:00* Test Item Value Reference Range Interpretation Comments Urine Color (test code = 5778-6) YELLOW YELLOW [facility] AllenU[facility] Irmgajo3265-67-90 14:26:00* Test Item Value Reference Range Interpretation Comments Urine Clarity (test code = 11546-3) SL CLOUDY CLEAR [facility] Specific Rkpmgtx0597-19-17 14:26:00 * Test Item Value Reference Range Interpretation Comments Urine Specific [place] (test code = 5811-5) 1.025 1.010-1.02 5 [facility] AllenU[facility] bU6331-22-17 14:26:00* Test Item Value Reference Range Interpretation Comments Urine pH (test code = 07630-2) 6 5-7 [facility] Leukocyte Htptatmz3557-71-98 14:26:00* Test Item Value Reference Range Interpretation Comments Urine Leukocyte Esterase (test code = 5799-2) NEGATIVE NEGATIVE [facility] Fkcxiap0400-01-46 14:26:00* Test Item Value Reference Range Interpretation Comments Urine Nitrite (test code = 36004-1) POSITIVE NEGATIVE [facility] Lzegarp7831-58-13 14:26:00* Test Item Value Reference Range Interpretation Comments Urine Protein (test code = 5804-0) NEGATIVE NEGATIVE [facility] Glucose (UA)2019-10-13 14:26:00* Test Item Value Reference Range Interpretation Comments Urine Glucose (UA) (test code = 2349-9) 1+ NEGATIVE [facility] AllenU[facility] Wmbrcoy6557-39-74 14:26:00* Test Item Value Reference Range Interpretation Comments Urine Ketones (test code = 13947-2) NEGATIVE NEGATIVE [facility] Wdtwoqjfnfgj8648-84-53 14:26:00* Test Item Value Reference Range Interpretation Comments Urine Urobilinogen (test code = 58235-2) 0.2 0.2-1 [facility] Ovqnrfycx9329-08-80 14:26:00* Test Item Value Reference Range Interpretation Comments Urine Bilirubin (test code = 1978-6) NEGATIVE [facility]GATIVE [facility] Mfwus7848-87-56 14:26:00* Test Item Value Reference Range Interpretation Comments Urine Blood (test code = 42603-0) NEGATIVE NEGATIVE [facility] 2 V[facility] - TPRI2317-51-13 14:01:00 [facility] [address] [place] [address] Patient Name: MAXI JONES MR #: [id number] : 1950 Age/Sex: 67/F Req #: [id number] Adm Physician: Ordered by: KATINA FELIX MD Report #: [id number] Location: [facility] Room/B ed: Procedure: [id number] HOPD/CXR 2 VIEW - HOPD Exam Date: 07/04/18 Exam Time: 1350 REPORT STATUS: Signed EXAMINATION: PA and lateral views of the chest. COMPARISON: No ne CLINICAL HISTORY: Cough, flulike symptoms today DISCUSSION: Lines/tubes: None. Lungs: The lungs are well inflated and clear. There is no evidence of pneumonia or pulmonary edema. Pleura: There is no pl eural effusion or pneumothorax. Heart and mediastinum: Cardiomediastinal s ilhouette is unremarkable. Pulmonary vasculature is normal. Bones and soft tissues: No acute bony abnormalities. Sternotomy wires. IMPRESSION: No acute cardiopulmonary abnormalities. Signed by: Dr. Alan Hager M.D. on 07/04/2018 2:01 PM Dictated By: ALAN HAGER MD El ectronically Signed By: ALAN HAGER MD on 07/04/18 1401 Transcribed By: TYLOR FITZGERALD on 07/04/18 1401 COPY TO: KATINA FELIX MD
[2020-03-22] MEDS ORDERED: ASPIRIN 81 MG CHEW TAB PO ONE (23:30)
--- NOTE | 2020-03-22 23:37 | Emergency Department Note ---
History of Present Illnes History of Present Illness Chief Complaint: Chest Pain History of Present Illness This is a 69 year old female with h/o cad who presents with c/o chest p ain radiating to left arm since 830 pm. states pain is 8/10. denies sob, denies n/v. Historian: Patient Arrival Mode: Car Onset (how long ago): hour(s) (3) Location: left chest Quality: pain Radiation: extremity (left arm) Severity: moderate Onset quality: sudden Duration (how long): hour(s) (3) Timing of current episode: constant Progression: unchanged Chronicity: new Context: recent illness, recent surgery Relieving factors: none Exacerbating factors: none Associated symptoms: shortness of breath Treatments prior to arrival: none Risk factors: htn,dm,cad Past Medical/Family History Physician Review I have reviewed the patient's past medical and family history. Any updates have been documented here. Past Medical History Recent Fever: No Clinical Suspicion of Infectio: No New/Unexplained Change in Ment: No Past Medical History: Hypertension, Diabetes, COPD, MA, CAD, Hyperlipedemia Past Surgical History: CABG, Pacer/AICD, Social History Smoking Cessation: Never Smoker Alcohol Use: None Any Illegal Drug Use: No Family History Family history of heart diseas: Yes Other Last Tetanus: UNK Review of Systems Review of Systems Constitutional: no symptoms EENTM: no symptoms Cardiovascular: as per HPI Respiratory: dyspnea, dyspnea on exertion Gastrointestinal: no symptoms Genitourinary: no symptoms Musculoskeletal: no symptoms Neurological: no symptoms Psychological: no symptoms Endocrine: no symptoms Hematological/Lymphatic: no symptoms Review of other systems All other systems reviewed and negative. Physical Exam Related Data Allergies: Coded Allergies: No Known Allergies (Unverified , 07/04/18) Triage Vital Signs Vital Signs Date Time Temp Pulse Resp B/P (MAP) Pulse Ox O2 Delivery O2 Flow Rate FiO2 03/22/20 23:21 98.9 92 17 126/89 98 Vital signs reviewed: Yes Physical Exam CONSTITUTIONAL Constitutional: well-developed, well-nourished, other (sightly anxious) HENT HENT: normocephalic, atraumatic, oropharynx clear/moist, nose normal HENT L/R: left ext ear normal, right ext ear normal EYES Eyes: PERRL, conjunctivae normal NECK Neck: ROM normal PULMONARY Pulmonary: effort normal, rales (mild bases) CARDIOVASCULAR Cardiovascular: regular rhythm, heart sounds normal, capillary refill normal, normal rate GASTROINTESTINAL Abdominal: soft, nontender, bowel sounds normal GENITOURINARY Genitourinary: exam deferred SKIN Skin: warm, dry MUSCULOSKELETAL Musculoskeletal: ROM normal NEUROLOGICAL Neurological: alert, oriented x 3, no gross motor or sensory deficits PSYCHOLOGICAL Psychological: mood/affect normal, judgement normal Procedures 12 Lead ECG Interpretation Automotive Quality Manager: Interpreted by ED physician Rhythm: paced (electronic ventricular paced rhythm) Rate: normal BPM: 95 Pacin% capture Clinical Impression: normal ECG (paced rhythm) Critical Care Time Subsequent provider I assumed direction of critical care for this patient from another provider of my specialty. Clinical Decision Tools HEART Score HEART Score: HEART Score Response (Comments) Value History Moderately suspicious 1 EKG Non specific repolarization 1 Age > or equal to 65 2 Risk factors 3 or more risk factors OR hx of CAD 2 Troponin > 3x normal limit Total 6 Assessment & Plan Reassessment Reassessment pt o2 sats dropped to 85% and now has rales throughout. bipap ordered 0032 pt now feels much better on bipap and after receiving lasix 40 mg iv, does not feel sob at this time on the bipap 0530 SECOND TROPONIN 1.9 Assessment & Plan Final Impression: (1) Chest pain (2) Dyspnea (3) Pulmonary edema (4) Non-STEMI (non-ST elevated myocardial infarction) Assessment & Plan pt with cad with left chest pain radiating to left arm cbc, cmp, ekg, cardiac enzymes, ekg, cxr ordered to eval for myocardial infarction, electrolyte abnormality, pneumonia, morphine 2 mg iv ordered aspirin 81 mg po ordered PT MOST LIKELY WENT INTO FLASH PULMONARY EDEMA, I SPOKE WITH AVA HI AND HE AGREES, HOWEVER DUE TO COVID PANDEMIC WILL AWAIT RESULTS OF COVID 19 TEST BEFORE ADMITTING PT TO HOSPITAL Depart Disposition: ADMITTED Last Vital Signs Date Time Temp Pulse Resp B/P (MAP) Pulse Ox O2 Delivery O2 Flow Rate FiO2 03/22/20 23:21 98.9 92 17 126/89 98 Home Meds Reported Medications Dorzolamide Hcl (DORZOLAMIDE HCL) 10 Ml Drops, 1 DROP OP BID, DROP 12/04/19 Insulin Degludec (Tresiba Flextouch U-100) 100 Unit/1 Ml Insuln.pen, 18 UNITS SC HS 12/04/19 Insulin Lispro (Humalog Kwikpen U-200) 200 Unit/1 Ml Insuln.pen, 8 UNITS SC BID 12/04/19 Famotidine (PEPCID AC) 10 Mg Tablet, 20 MG PO HS 12/04/19 Aspirin (ASPIRIN) 81 Mg Tab.chew, 81 MG PO DAILY, #30 TAB.CHEW 10/15/19 Ranolazine (RANEXA) 500 Mg Tabsr, 500 MG PO BID, #60 TAB 10/15/19 Isosorbide Mononitrate (ISOSORBIDE MONONITRATE) 20 Mg Tablet, 60 MG PO DAILY, #30 TAB 10/15/19 Atorvastatin Calcium (ATORVASTATIN CALCIUM) 40 Mg Tablet, 40 MG PO HS, #30 TAB 10/13/19 Metoprolol Succinate (METOPROLOL SUCCINATE) 50 Mg Tab.er.24h, 50 MG PO DAILY, MG 10/13/19 Metformin Hcl (METFORMIN HCL) 500 Mg Tablet, 2 TAB PO BID, #60 TAB 10/13/19 Losartan Potassium (LOSARTAN POTASSIUM) 100 Mg Tablet, 100 MG PO DAILY, TAB 10/13/19 Latanoprost (LATANOPROST) 2.5 Ml Drops, 1 DROP OP HS, BOTTLE 10/13/19 Albuterol Sulf* (PROAIR HFA INHALER*) 8.5 Gm Inh, 2 INH PRN 10/13/19 Medications in the ED Aspirin 81 mg PRN ONCE PO ; Start 03/22/20 at 23:30; Stop 03/22/20 at 23:31 Morphine Sulfate 2 mg NOW STAT IV ; Start 03/22/20 at 23:22; Stop 03/22/20 at 23:26; Status DC Ondansetron HCl 4 mg NOW STAT IV ; Start 03/22/20 at 23:22; Stop 03/22/20 at 23:26; Status DC [facility] LA MD March 22, 2020 23:37
[2020-03-22 23:49] LABS: BASOPHILS # (AUTO) 0.1 (0.0-0.1); BASOPHILS % 0.5 % (0.0-1.0); EOSINOPHILS # (AUTO) 0.2 (0.0-0.4); EOSINOPHILS % 1.5 % (0.0-6.0); HEMATOCRIT 36.4 % (34.2-44.1); HEMOGLOBIN 11.1 g/dL (12.0-16.0); LYMPHOCYTES # (AUTO) 2.3 (1.0-3.2); LYMPHOCYTES % 21.2 % (18.0-39.1); MEAN CORPUSCULAR HEMOGLOBIN 25.2 pg (28-32); MEAN CORPUSCULAR HGB CONC 30.5 g/dL (31-35); MEAN CORPUSCULAR VOLUME 82.5 fL (81-99); MONOCYTES # (AUTO) 0.6 (0.2-0.8); MONOCYTES % 5.1 % (4.4-11.3); NEUTROPHILS # (AUTO) 7.7 (2.1-6.9); NEUTROPHILS % 71.2 % (38.7-80.0); PLATELET COUNT 270 x10e3/uL (140-360); RED BLOOD COUNT 4.41 x10e6/uL (3.6-5.1); RED CELL DISTRIBUTION WIDTH 15.4 % (11.7-14.4)
[2020-03-22 23:55] LABS: INR 0.86; PARTIAL THROMBOPLASTIN TIME 27.5 seconds (23.8-35.5); PROTHROMBIN TIME 12.2 seconds (11.9-14.5)
[2020-03-23] VITALS (13 sets, daily range): BP systolic 124–159; BP diastolic 49–77
[2020-03-23] MEDS ORDERED: FUROSEMIDE INJ 10 MG/ML 4 ML VIAL IV ONE
[2020-03-23 00:04] LABS: ALBUMIN 3.7 g/dL (3.5-5.0); ALBUMIN/GLOBULIN RATIO 1.1 (0.8-2.0); ANION GAP 17.6 mmol/L (8-16); CREATININE, SERUM 1.13 mg/dL (0.57-1.11); POTASSIUM 4.6 mmol/L (3.5-5.1)
[2020-03-23 00:13] LABS: CREATINE KINASE MB 1.8 ng/mL (0-5.0)
--- NOTE | 2020-03-23 00:13 | Diagnostic Imaging Report ---
EXAMINATION: CHEST SINGLE (PORTABLE) INDICATION: Chest pain COMPARISON: Chest x-ray 12/04/2019 FINDINGS: TUBES and LINES: Left chest wall cardiac device with leads in the right atrium and right ventricle and coronary sinus.. LUNGS/PLEURA: Normal lung volumes. Prominent pulmonary interstitial lung markings. Right mid/lower lung haziness.. Bronchial cuffing. Obscured right costophrenic sulcus. No consolidations. No pneumothorax. HEART AND MEDIASTINUM: Cardiac size is mildly enlarged. Surgical changes along the mediastinum. BONES AND SOFT TISSUES: No acute osseous lesion. Soft tissues are unremarkable. Sternotomy wires intact. UPPER ABDOMEN: No free air under the diaphragm. IMPRESSION: Mild cardiomegaly. Findings of pulmonary edema. Right lower lung haziness can is likely due to alveolar edema, however superimposed pneumonia or pleural effusion can also be present. Signed by: Wilfred Nolan DO on 03/23/2020 12:10 AM
[2020-03-23 05:25] LABS: CREATINE KINASE MB 9.3 ng/mL (0-5.0)
--- NOTE | 2020-03-23 05:28 | NUR ---
DR LA SPOKE TO DR. Segundo HI REGARDING POSITIVE TROPONIN.
[2020-03-23] MEDS ORDERED: HEPARIN 25,000 UNIT 600 UNIT in DEXTROSE 5% 250ML 250 ML IV SCH (05:30)
[2020-03-23] MEDS ORDERED: HEPARIN SOD (PORCINE) 5,000 UNIT/ML VIAL IV ONE (05:30)
[2020-03-23] MEDS ORDERED: HEPARIN 25,000 UNIT DRIP IV ONE (05:39)
--- OUTSIDE RECORDS SUMMARY | 2020-03-23 05:41 | XMS REPORT ---
Author Author [facility] t Organization [facility] Address [address] [facility] [address] [place] [address] Phone Unavailable Care Team Providers Care Enrollment Eligibility Representative Name Role Phone ALEX BLEDSOE MD PCP Clarissa LA Attphys Unavailable ASA CORADO Attphys Unavailable MAHESH SHEA Attphys Unavailable BLEDSOE, SOUHEIL Attphys Unavailable Davie FELIX Attphys Unavailable ASA CORADO Admphys Unavailable MAHESH SHEA Admphys Unavailable BLEDSOE, SOUHEIL Admphys Unavailable Payers Payer Name Policy Type Policy Number Effective Date Expiration Date Reggie verdin [facility] eGiftersaline [id number] 2018 00:00:00 [facility] [id number] 2018 00:00:00 [facility] Problems Condition Name Condition Details Condition Category Status Onset Date Resolution Date Last Treatment Date Treating Clinician Comments Source Chest pain Chest pain Problem Active C [facility] Dyspnea Dyspnea Problem Active [facility] Hypertension Hypertension Problem Active [facility] Hypomagnesemia Hypomagnesemia Problem Active [facility] Urinary tract infection UTI (urinary tract infection) Problem Active [facility] Allergies, Adverse Reactions, Alerts This patient has no known allergies or adverse reactions. Medications Ordered Medication Name Filled Medication Name Start Date Stop Da te Current Medication? Ordering Clinician Indication Dosage Frequency Signature (SIG) Comments Components Source Famotidine 20 Mg Tab, 20 Mg Oral Famotidine 20 Mg Tab, 20 Mg Oral 2019-10-23 00:00:00 2019-12-04 00:00:00 No Mahesh Shea Md 20 Every 12 Hours [facility] Albuterol Sulfate (Proair Hfa Inhaler*) 8.5 Gm Inh Alb uterol Sulfate (Proair Hfa Inhaler*) 8.5 Gm Inh Yes 2 As Needed [facility] Aspirin 81 Mg Tab.chew Aspirin 81 Mg Tab.chew Yes 81 Daily [facility] Atorvastatin Calcium 40 Mg Tablet Atorvastatin Calcium 40 Mg Tablet Yes 40 Bedtime [facility] Dorzolamide Hcl 10 Ml Drops Dorzolamide Hcl 10 Ml Drops Yes 1 Twice A Day [facility] Famotidine (Pepcid Ac) 10 Mg Tablet Famotidine (Pepcid Ac) 10 Mg Tabl et Yes 20 Bedtime [facility] Insulin Degludec (Tresiba Flextouch U-100) 100 Unit/1 Ml Insuln.pen Insulin Degludec (Tresiba Flextouch U-100) 100 Unit/1 Ml Insuln.pen Yes 18 Bedtime [facility] Insulin Lispro (Humalog Kwikpen U-200) 200 Unit/1 Ml I nsuln.pen Insulin Lispro (Humalog Kwikpen U-200) 200 Unit/1 Ml Insuln.pen Yes 8 Twice A Day [facility] Isosorbide Mononitrate 20 Mg Tablet Isosorbide Mononitrate 20 Mg Tabl et Yes 60 Daily [facility] Latanoprost 2.5 Ml Drops Latanoprost 2.5 Ml Drops Yes 1 Bedtime [facility] Losartan Potassium 100 Mg Tablet Losartan Potassium 100 Mg Tablet Yes 100 Daily [facility] Metformin Hcl 500 Mg Tablet Metformin Hcl 500 Mg Tablet Yes 2 Twice A Day [facility] Metoprolol Succinate 50 Mg Tab.er.24h Metoprolol Succinate 50 Mg Ta b.er.24h Yes 50 Daily [facility] Ranolazine (Ranexa) 500 Mg Tabsr Ranolazine (Ranexa) 500 Mg Tabsr Yes 500 Twice A Day [facility] Cefdinir (Omnicef) 300 Mg Capsule, 300 Mg Oral Cefdini r (Omnicef) 300 Mg Capsule, 300 Mg Oral 2019-10-23 00:00:00 No 300 Twi ce A Day [facility] Isosorbide Mononitrate 20 Mg Tablet, 60 Mg Oral Isosor bide Mononitrate 20 Mg Tablet, 60 Mg Oral 2019-10-22 00:00:00 No 60 Daily [facility] Ranolazine (Ranexa) 500 Mg Tabsr, 500 Mg Oral Ranolazi ne (Ranexa) 500 Mg Tabsr, 500 Mg Oral 2019-10-22 00:00:00 No 500 Twice A Day [facility] Procedures Procedure Date / Time Performed Performing Clinician Sourc e L HRT ART/GRFT ANGIO 2019-10-21 00:00:00 JUSTIN HI V [facility] X-ray of chest, single view 2019-10-13 00:00:00 ARIEL MAHMOOD [facility] Encounters Start Date/Time End Date/Time Encounter Type Admission Type [facility] Facility Care Department Encounter ID Source 2019-12-04 12:19:00 2019-12-05 15:58:00 Discharged Inpatient (obs) 3 ASA NEVAREZ [facility] [id number] [facility] 2019-10-21 23:37:00 2019-10-23 17:21:00 Discharged Inpatient (obs) 1 MAHESH SHEA [facility] [id number] [facility] 2019-10-13 13:27:00 2019-10-15 20:55:00 Discharged Inpatient (obs) 1 ALEX BLEDSOE [facility] [id number] [facility] 2018-07-04 12:42:00 2018-07-04 14:22:00 Departed Emergency Room 1 KATINA FELIX [facility] [id number] [facility] Results Test Description Test Time Test Comments Results Result Comments Source CHEST SINGLE (PORTABLE) 2020-03-23 00:06:00 [place] [address] Patient Name: MAXI JONES MR #: [id number] : 1950 Age/Sex: 69/F Req #: [id number] Adm Physician: Ordered by: CUCO LA MD Report #: [id number] Location: ER Room/Bed: Procedure: [id number] DX/CHEST SINGLE (PORTABLE) Exam Date: 03/22/20 Exam Time: 7320 REPORT STATUS: Signed EXAMINATION: CHEST SINGLE (PORTABLE) INDICATION: Chest pain COMPARISON: Chest x-ray 12/04/2019 FINDINGS: TUBES and LINES: Left chest wall cardiac device with leads in the right atrium and right ventricle and coronary sinus.. LUNGS/PLEURA: Normal lung volumes. Prominent pulmonary interstitial lung markings. Right mid/lower lung haziness.. Bronchial cuffing. Obscured right costophrenic sulcus. No consolidations. No pneumothorax. HEART AND MEDIASTINUM: Cardiac size is mildly enlarged. Surgical changes along the mediastinum. BONES AND SOFT TISSUES: No acute osseous lesion. Soft tissues are unremarkable. Sternotomy wires intact. UPPER ABDOMEN: No free air under the diaphragm. IMPRESSION: Mild cardiomegaly. Findings of pulmonary edema. Right lower lung haziness can is likely due to alveolar edema, however superimposed pneumonia or pleural effusion can also be present. Signed by: Wilfred Khanna DO on 03/23/2020 12:10 AM Dictated By: WILFRED KHANNA DO Transcribed By: MICKEY on 03/23/209 COPY TO: CUCO LA MD Bedside Glucose 2019-12-05 12:03:00 Test Item Bedside Glucose (test code = 27702-2) 257 70-120 Meter ID: [id number] [facility] SINGLE (PORTABLE)2019-12-04 14:21:00 [facility] [address] [place] [address] Patient Name: MAXI JONES MR #: [id number] : 1950 Age/Sex: 69/F Req #: [id number] Adm Physician: ASA CORADO MD Ordered by: ASA CORADO MD Report #: [id number] Location: MED/SURG Room/Bed: [facility] Procedure: [id number] DX/CHEST SINGLE (PORTABLE) Exam Date: 12/04/19 Exam [...] 1422 COPY TO: ASA CORADO MD Sodium Bxyqf5338-78-53 11:04:00* Test Item Value Reference Range Interpretation Comments Sodium Level (test code = 2951-2) 139 136-145 [facility]assium Hdvzp0413-28-67 11:04:00* Test Item Value Reference Range Interpretation Comments Potassium Level (test code = 2823-3) 4.7 3.5-5.1 [facility] HoustonChloride Ifvvf4191-45-72 11:04:00* Test Item Value Reference Range Interpretation Comments Chloride Level (test code = 2075-0) 103 98-107 [facility] HoustonCarbon Dioxide Itpmb9275-64-38 11:04:00* Test Item Value Reference Range Interpretation Comments Carbon Dioxide Level (test code = 2028-9) 25 22-29 [facility] HoustonAnion Mzw7508-90-79 11:04:00* Test Item Value Reference Range Interpretation Comments Anion Gap (test code = 83723-8) 15.7 8-16 [facility] HoustonBlood Urea Hryxwajx3483-67-66 11:04:00* Test Item Value Reference Range Interpretation Comments Blood Urea Nitrogen (test code = 3094-0) 12 7-26 [facility] HoustonCreatinine2020-02-05 11:04:00* Test Item Value Reference Range Interpretation Comments Creatinine (test code = 2160-0) 0.94 0.57-1.11 [facility] HoustonBUN/Creatinine Estsb4244-63-84 11:04:00* Test Item Value Reference Range Interpretation Comments BUN/Creatinine Ratio (test code = 3097-3) 13 6-25 [facility] HoustonEstimat Glomerular Filtration Rate 2019-12-02 11:04:00* Test Item Value Reference Range Interpretation Comments Estimat Glomerular Filtration Rate (test code = 708979338) 59 >60 Ranges were taken from the National Kidney Disease Education Program and the Count includes the [facility] Kidney Foundation literature.Reference ranges:60 or greater: Mfauvc59-33 ( for 3 consecutive months): Chronic kidney disease 15 or less: Kidney failureNexus Children's Hospital HoustonGlucose Pzupi9644-84-90 11:04:00* Test Item Value Reference Range Interpretation Comments Glucose Level (test code = NEX9736) 169 74-118 [facility] HoustonCalcium Dqrcm7431-54-00 11:04:00* Test Item Value Reference Range Interpretation Comments Calcium Level (test code = 56389-9) 9.6 8.4-10.2 [facility] HoustonProthrombin Fhsx4951-08-63 10:54:00* Test Item Value Reference Range Interpretation Comments Prothrombin Time (test code = 5902-2) 12.8 11.9-14.5 [facility] HoustonProthromb Time International Ratio 2019-12-02 10:54:00* Test Item Value Reference Range Interpretation Comments Prothromb Time International Ratio (test code = 6301-6) 0.94 Oral Anticoagulant Therapy INR Values:1. Low Intensity Therapy 1.5 - 2.02 . Moderate Intensity Therapy 2.0 - 3.03. High Intensity Therapy(1) 2.5 - 3. 54. High Intensity Therapy(2) 3.0 - 4.05. Panic Value INR > 5.0 [facility] HoustonWhite Blood Kfisr4071-57-60 10:47:00* Test Item Value Reference Range Interpretation Comments White Blood Count (test code = 6690-2) 8.49 4.8-10.8 [facility] HoustonRed Blood Vijcd8322-95-39 10:47:00* Test Item Value Reference Range Interpretation Comments Red Blood Count (test code = 789-8) 4.13 3.6-5.1 [facility] HoustonHemoglobin2020-02-05 10:47:00* Test Item Value Reference Range Interpretation Comments Hemoglobin (test code = 61691-6) 10.7 12.0-16.0 [facility] HoustonHematocrit2020-02-05 10:47:00* Test Item Value Reference Range Interpretation Comments Hematocrit (test code = 4544-3) 34.3 34.2-44.1 [facility] HoustonMean Corpuscular Etvmxz6497-25-67 10:47:00* Test Item Value Reference Range Interpretation Comments Mean Corpuscular Volume (test code = 787-2) 83.1 81-99 [facility] HoustonMean Corpuscular Omdaqdppjt1156-87-28 10:47:00* Test Item Value Reference Range Interpretation Comments Mean Corpuscular Hemoglobin (test code = 785-6) 25.9 28-32 [facility] HoustonMean Corpuscular Hemoglobin Concent 2019-12-02 10:47:00* Test Item Value Reference Range Interpretation Comments Mean Corpuscular Hemoglobin Concent (test code = 786-4) 31.2 31-35 [facility] HoustonRed Cell Distribution Xyfam4291-29-46 10:47:00* Test Item Value Reference Range Interpretation Comments Red Cell Distribution Width (test code = 07966-6) 15.2 11.7 -14.4 [facility] HoustonPlatelet Vnegb9139-67-32 10:47:00* Test Item Value Reference Range Interpretation Comments Platelet Count (test code = 777-3) 225 140-360 [facility] HoustonNeutrophils (%) (Auto)2019-12-02 10:47:00 * Test Item Value Reference Range Interpretation Comments Neutrophils (%) (Auto) (test code = 24843-4) 60.5 38.7-80.0 [facility] HoustonLymphocytes (%) (Auto)2019-12-02 10:47:00 * Test Item Value Reference Range Interpretation Comments Lymphocytes (%) (Auto) (test code = 736-9) 30.3 18.0-39.1 [facility] HoustonMonocytes (%) (Auto)2019-12-02 10:47:00* Test Item Value Reference Range Interpretation Comments Monocytes (%) (Auto) (test code = 5905-5) 6.6 4.4-11.3 [facility] HoustonEosinophils (%) (Auto)2019-12-02 10:47:00 * Test Item Value Reference Range Interpretation Comments Eosinophils (%) (Auto) (test code = 713-8) 2.0 0.0-6.0 [facility] HoustonBasophils (%) (Auto)2019-12-02 10:47:00* Test Item Value Reference Range Interpretation Comments Basophils (%) (Auto) (test code = 706-2) 0.2 0.0-1.0 [facility] HoustonIM GRANULOCYTES %2019-12-02 10:47:00* Test Item Value Reference Range Interpretation Comments IM GRANULOCYTES % (test code = IM GRANULOCYTES %) 0.4 0.0- 1.0 [facility] HoustonNeutrophils # (Auto)2019-12-02 10:47:00* Test Item Value Reference Range Interpretation Comments Neutrophils # (Auto) (test code = 751-8) 5.1 2.1-6.9 [facility] HoustonLymphocytes # (Auto)2019-12-02 10:47:00* Test Item Value Reference Range Interpretation Comments Lymphocytes # (Auto) (test code = 07961-1) 2.6 1.0-3.2 [facility] HoustonMonocytes # (Auto)2019-12-02 10:47:00* Test Item Value Reference Range Interpretation Comments Monocytes # (Auto) (test code = 742-7) 0.6 0.2-0.8 [facility] HoustonEosinophils # (Auto)2019-12-02 10:47:00* Test Item Value Reference Range Interpretation Comments Eosinophils # (Auto) (test code = 711-2) 0.2 0.0-0.4 [facility] HoustonBasophils # (Auto)2019-12-02 10:47:00* Test Item Value Reference Range Interpretation Comments Basophils # (Auto) (test code = 704-7) 0.0 0.0-0.1 [facility] HoustonAbsolute Immature Granulocyte (auto 2019-12-02 10:47:00* Test Item Value Reference Range Interpretation Comments Absolute Immature Granulocyte (auto (kannan t code = Absolute Immature Granulocyte (auto) 0.03 0-0.1 [facility] Treadmill IGLI6704-87-02 11:21:00 [facility] [address] [place] [address] Patient Name : MAXI JONES MR #: [id number] : 1950 Age/Sex: 69/F Adm Physician : MAHESH SHEA MD Admit Date : 10/21/19 Location : MED/SURG Room/Bed : [facility] REPORT: Stephan gonzales Stress Test DATE OF STUDY: 10/22/2019 06:57:00 Stress Test - Treadmi ll ONLY PROCEDURE: Rest/stress single isotope SPECT imaging with pharmaco logic stress and gated SPECT imaging. INDICATION: Chest pain. OH OCEDURE IN DETAIL: Pharmacologic stress testing was [...] post-stress tomographic imaging was performed. FINDINGS: The ov erall quality of the study is fair. Left [...] motion abnormalities as above. Harry Gross MD ABS/DAYDAYL Job #: [id number] Signature Date Dictated By: HARRY GROSS MD Transcribed By: MODL on 10/27/19 <Electronically signed by HARRY GROSS MD><<Signature on File>>10/27/19 [id number] COPY TO: Creatine Kinase MB 2019-10-22 14:33:00* Test Item Value Reference Range Interpretation Comments Creatine Kinase MB (test code = 88214-8) 2.40 0-5.0 [facility] HoustonTroponin R9440-60-18 14:33:00* Test Item Value Reference Range Interpretation Comments Troponin I (test code = XHB7325) 0.068 0-0.300 [facility] HoustonCreatine Nzfzqs3277-15-34 14:25:00* Test Item Value Reference Range Interpretation Comments Creatine Kinase (test code = 2157-6) 57 29-168 [facility] HoustonHemoglobin A1c Lyuplhi9190-72-36 06:52:00 * Test Item Value Reference Range Interpretation Comments Hemoglobin A1c Percent (test code = Hemoglobin A1c Percent) 9.3 4.0-7.0 [facility] HoustonTriglycerides Vryqt2685-71-80 06:15:00* Test Item Value Reference Range Interpretation Comments Triglycerides Level (test code = 2571-8) 87 0-149 [facility] HoustonCholesterol Dxdwl7595-35-60 06:15:00* Test Item Value Reference Range Interpretation Comments Cholesterol Level (test code = 2093-3) 119 0-199 Less than 200 mg/dL Low Jkob140 - 239 mg/dL Borderline Gazd505 m g/dl and greater High Risk [facility] HoustonLDL Pawowrybdnk5098-41-94 06:15:00* Test Item Value Reference Range Interpretation Comments LDL Cholesterol (test code = 2089-1) 51 60-130 [facility] HoustonHDL Hevpuqflztz8341-71-19 06:15:00* Test Item Value Reference Range Interpretation Comments HDL Cholesterol (test code = 2085-9) 51 40-60 [facility] HoustonCholesterol/HDL Gqrbm3016-73-88 06:15:00 * Test Item Value Reference Range Interpretation Comments Cholesterol/HDL Ratio (test code = 9830-1) 2.3 3.0-3.6 [facility] HoustonB-Type Natriuretic Xzvxtde6777-86-21 23:47:00* Test Item Value Reference Range Interpretation Comments B-Type Natriuretic Peptide (test code = 16719-8) 98.8 0-100 [facility] HoustonCHEST SINGLE (PORTABLE)2019-10-21 22:58:00 [place] [address] Patient Name: MAXI JONES MR #: [id number] : 1950 Age/Sex: 69/F Req #: [id number] Adm Physician: Ordered by: PRAVEEN MONDRAGON NP Report #: [id number] Location: ER Room/Bed: Procedure: [id number] DX/CHEST SINGLE (PORTABLE) [...] 10/21/192258 COPY TO: PRAVEEN MONDRAGON NP Magnesium Tlban5527-97-12 22:47:00* Test Item Value Reference Range Interpretation Comments Magnesium Level (test code = 72404-7) 1.3 1.3-2.1 [facility] HoustonTotal Mscrmgiye8530-53-50 22:47:00* Test Item Value Reference Range Interpretation Comments Total Bilirubin (test code = 1975-2) 0.3 0.2-1.2 [facility] HoustonAspartate Amino Transf (AST/SGOT) 2019-10-21 22:47:00* Test Item Value Reference Range Interpretation Comments Aspartate Amino Transf (AST/SGOT) (test code = Aspartate Amino Transf (AST/SGOT)) 23 5-34 [facility] HoustonAlanine Aminotransferase (ALT/SGPT) 2019-10-21 22:47:00* Test Item Value Reference Range Interpretation Comments Alanine Aminotransferase (ALT/SGPT) (test code = 1742-6) 18 0-55 [facility] HoustonTotal Tbbowqm3067-23-73 22:47:00* Test Item Value Reference Range Interpretation Comments Total Protein (test code = 2885-2) 7.1 6.5-8.1 [facility] HoustonAlbumin2019-12-25 22:47:00* Test Item Value Reference Range Interpretation Comments Albumin (test code = 1751-7) 3.5 3.5-5.0 [facility] HoustonGlobulin2019-12-25 22:47:00* Test Item Value Reference Range Interpretation Comments Globulin (test code = 86967-8) 3.6 2.3-3.5 [facility] HoustonAlbumin/Globulin Accun6652-41-34 22:47:00 * Test Item Value Reference Range Interpretation Comments Albumin/Globulin Ratio (test code = 1759-0) 1.0 0.8-2.0 [facility] HoustonAlkaline Geculeczwsc8284-00-05 22:47:00* Test Item Value Reference Range Interpretation Comments Alkaline Phosphatase (test code = 6768-6) 65 40-150 [facility] HoustonActivated Partial Thromboplast Time 2019-10-21 22:35:00* Test Item Value Reference Range Interpretation Comments Activated Partial Thromboplast Time (test code = 75980-2) 25.2 23.8-35.5 [facility] HoustonPhosphorus Caudh1904-57-49 05:32:00* Test Item Value Reference Range Interpretation Comments Phosphorus Level (test code = HWC9618) 3.4 2.3-4.7 [facility] HoustonCHEST SINGLE (NOT PORTABLE)2019-10-13 15:09:00 [place] [address] Patient Name: MAXI JONES MR #: [id number] : 1950 Age/Sex: 69/F Req #: [id number] Adm Physician: ALEX BLEDSOE MD Ordered by: ARIEL MAHMOOD MD, MD Report #: [id number] [facility]: [facility] Room/Bed: [place] [address] Procedure: [id number] DX/CHEST SINGLE (NOT PORTABLE) [...] on 10/13/19 1513 COPY TO: ARIEL MAHMOOD Mtwiwm8428-91-83 15:06:00* Test Item Value Reference Range Interpretation Comments Lipase (test code = 3040-3) 49 8-78 [facility] HoustonUrine FQK7161-38-89 14:45:00* Test Item Value Reference Range Interpretation Comments Urine WBC (test code = 5821-4) 0-5 0-5 [facility] HoustonUrine VEC9172-32-51 14:45:00* Test Item Value Reference Range Interpretation Comments Urine RBC (test code = 18340-6) NONE 0-5 [facility] HoustonUrine Eawihnqj4036-07-34 14:45:00* Test Item Value Reference Range Interpretation Comments Urine Bacteria (test code = 15104-7) MANY NONE [facility] HoustonU[facility] Epithelial Tgmph2731-73-72 14:45:00 * Test Item Value Reference Range Interpretation Comments Urine Epithelial Cells (test code = 02347-1) NONE NONE [facility] HoustonUrine Rxbeo5943-54-45 14:26:00* Test Item Value Reference Range Interpretation Comments Urine Color (test code = 5778-6) YELLOW YELLOW [facility] HoustonUrine Lutahxr3498-98-44 14:26:00* Test Item Value Reference Range Interpretation Comments Urine Clarity (test code = 49168-4) SL CLOUDY CLEAR [facility] Specific Kdzaccb6542-84-93 14:26:00 * Test Item Value Reference Range Interpretation Comments Urine Specific Cades (test code = 5811-5) 1.025 1.010-1.02 5 [facility] HoustonUrine tF7460-14-66 14:26:00* Test Item Value Reference Range Interpretation Comments Urine pH (test code = 74782-8) 6 5-7 [facility] Leukocyte Egerivdr0816-30-55 14:26:00* Test Item Value Reference Range Interpretation Comments Urine Leukocyte Esterase (test code = 5799-2) NEGATIVE NEGATIVE [facility] Spralxn7954-43-79 14:26:00* Test Item Value Reference Range Interpretation Comments Urine Nitrite (test code = 67859-0) POSITIVE NEGATIVE [facility] HoustonUrine Rhvzawz0718-34-76 14:26:00* Test Item Value Reference Range Interpretation Comments Urine Protein (test code = 5804-0) NEGATIVE NEGATIVE [facility] Glucose (UA)2019-10-13 14:26:00* Test Item Value Reference Range Interpretation Comments Urine Glucose (UA) (test code = 2349-9) 1+ NEGATIVE [facility] HoustonUrine Aojfxym9493-76-32 14:26:00* Test Item Value Reference Range Interpretation Comments Urine Ketones (test code = 45492-5) NEGATIVE NEGATIVE [facility] HoustonUrine Rijnrbqyolxz1270-38-66 14:26:00* Test Item Value Reference Range Interpretation Comments Urine Urobilinogen (test code = 56552-3) 0.2 0.2-1 [facility] HoustonUrine Dyocydjdp8540-51-62 14:26:00* Test Item Value Reference Range Interpretation Comments Urine Bilirubin (test code = 1978-6) NEGATIVE [facility]GATIVE [facility] Kjfyz4241-34-66 14:26:00* Test Item Value Reference Range Interpretation Comments Urine Blood (test code = 83193-4) NEGATIVE NEGATIVE [facility] - PAYW1274-79-59 14:01:00 [facility] [address] [place] [address] Patient Name: MAXI JONES MR #: [id number] : 1950 Age/Sex: 67/F Req #: [id number] Adm Physician: Ordered by: KATINA FELIX MD Report #: [id number] Location: [facility] Room/B ed: Procedure: [id number] HOPD/CXR 2 VIEW - HOPD Exam Date: [...]
[2020-03-23] MEDS ORDERED: MORPHINE SULFATE 2 MG/ML SYR 1ML IV PRN (05:45)
[2020-03-23] MEDS ORDERED: DEXTROSE 50% SYRINGE 50 ML IV PRN (05:45)
[2020-03-23] MEDS ORDERED: ONDANSETRON HCL INJ 2MG/ML 2ML 2 MG/ML VIAL IV PRN (05:45)
[2020-03-23] MEDS ORDERED: ASPIRIN 81 MG CHEW TAB PO ONE (05:45)
--- NOTE | 2020-03-23 05:51 | NUR ---
H&P cc: sob HPI: 69yoF, PCP , developed sob and cp, placed on BIPAP, found to have elevated Tn with NSTEMI. Cardiology consulted, pt stated on heparin gtt. PMH: Atypical CP in 09/2019, CAD s/p CABG, UTI, HTN, HLD, LBBB, Chronic angina PSHx: CABG x3 in 1999 Allergies; see emr Fh/SH; FH of HTN, DM, no illicits; ; MEds; see MAR ROS: no f/c/s/V/D/CASTRO/vision changes/dizziness/confusion/back pain/leg pain v/s revd PE tired appearing anicteric ns1s2 mod bs soft nt nd no e/t a&ox3; [place] skin dry n. affect labs/meds revd A/P: NSTEMI- cardio; plavix/statin/BB/asa/aceI Hypertensive heart ds- BB CAD with hx CABG- meds as above HLD- statin Overweight BMI 27.3- as above DM2- hba1c/lipids Mahesh Duran MD, PhD.
[2020-03-23] MEDS ORDERED: ZOLPIDEM TARTRATE 5 MG TAB PO PRN (06:00)
[2020-03-23] MEDS ORDERED: ACETAMINOPHEN 325 MG TAB PO PRN (06:00)
[2020-03-23] MEDS ORDERED: DOCUSATE SODIUM 100 MG CAP PO PRN (06:00)
--- NOTE | 2020-03-23 06:49 | NUR ---
REPORT GIVEN TO MURIEL MENDEZ
[2020-03-23] MEDS: INSULIN REGULAR, HUMAN 100 UNIT/1 ML 3ML VIAL SQ SCH ×3 (08:25→21:15)
[2020-03-23] MEDS ORDERED: ISOSORBIDE MONONITRATE 20 MG TAB PO SCH (09:00)
[2020-03-23] MEDS ORDERED: INSULIN LISPRO 100 UNIT/1 ML 3ML VIAL SQ SCH (09:00)
[2020-03-23] MEDS ORDERED: HEPARIN SOD (PORCINE) 1000 UNIT/ML 30ML ONE (11:12)
[2020-03-23] MEDS ORDERED: FENTANYL CITRATE/PF 100MCG/2 ML INJ ONE (11:13)
[2020-03-23] MEDS ORDERED: MIDAZOLAM HCL 2 MG/2 ML VIAL ONE (11:13)
[2020-03-23] MEDS ORDERED: SODIUM CHLORIDE 0.9% 1000ML 1,000 ML ONE (11:14)
[2020-03-23] MEDS ORDERED: IOPAMIDOL 370 MG/ML 200 ML INFUS..BTL INJ ONE (11:14)
[2020-03-23] MEDS ORDERED: LIDOCAINE HCL 2% LOCAL 20 ML VIAL ONE (11:14)
[2020-03-23] MEDS ORDERED: NITROGLYCERIN/D5W 200 MCG/ML 0 ML ONE (11:14)
[2020-03-23] MEDS ORDERED: HEPARIN SOD/SOD CHLORIDE 2,000 ML ONE (11:14)
[2020-03-23] MEDS: FUROSEMIDE INJ 10 MG/ML 4 ML VIAL IV SCH ×2 (11:21→21:15)
[2020-03-23] MEDS: METOPROLOL SUCCINATE 50 MG TAB XL PO SCH (11:22)
[2020-03-23] MEDS: RANOLAZINE 500 MG TABSR PO SCH ×2 (11:22→17:01)
--- NOTE | 2020-03-23 12:10 | NUR ---
1210pm RECEIVING NOTE DONOR RECRUITER RECOVERY DEPT............................................................... Bedside report received from VANESSA Aden. Identifierx2. Alert oriented and appropriate, PERRLA, respirations even and unlabored to room air. Pulses x4 extremities equal and strong. Pedal pulses PT/DP X4 Cap fill brisk < 3 sec. Rt Groin Mynx closure No gross issues pain,pallor,pressure or dysrhythmia.Remains v-paced 1:1 s/p LHC no fix medical mgt. only. Skin warm and dry integrity appears D/I. IV 20g to rt ac and left forearm , presents healthy w/o s/s of infiltration or complaint.Heparin drip dc at 1130am.No 1130 PTT drawn. Covid testing no resulted. Abdomen soft and supple. pt offered toileting, denies need to urinate or defecate. No personal affects with patient. Family at home . Pt and verbalizes understanding of POC.give Mynx broshure and diagram of heart procedure. 1/versed and 50 fentynal given during procedure and 500cc Ns infused Currently w/o complaint of pain or need.ds/rn
--- NOTE | 2020-03-23 14:00 | NUR ---
1400 served cardiac snack tray tolerated well back to baseline orientation Rt groin No signs hematoma or oozing dressing dry and intact. Being admitted to 299 telemetry observation. Remains v paced and no active CP or SOB 1415 Scot histologist technologist here 2D echo done and Woodrow Salas house supv notifed bed admission and report given to Vida SALAS floor staff air defense officer. chapo/rn
--- NOTE | 2020-03-23 14:30 | NUR ---
1430pTransfer pt to room per stretcher. Left pt in room call light at BS. No issues with rt groin Mynx site. Bedrest completed. Pt with RN at bedside Side rails up,call light at bedside. [facility] no fix Versed/Fentanyl. Back to baseline Orientation. Void on arrival to room.Tolerating po intake will need meds started and BS checked. Heparin drip off since 1130am. Has x2 patient ivs from ED rt and left arm NO signs of infiltration. Handoff completed with Vida MENDEZ Report to tele room remains VPaced 1:1. ds/rn
--- NOTE | 2020-03-23 14:41 | NUR ---
Received patient from carpenter/labor via stretcher. AAOX4 to time, person, place, situation. Respirations even and unlabored. Denies chest pain. Tele #19 vpaced 78. Dressing to right groin clean, dry, and intact. Oriented to room. Instructed to use call light for assistance. Voiced understanding. Will continue to monitor.
--- OUTSIDE RECORDS SUMMARY | 2020-03-23 14:43 | XMS REPORT ---
Author Author [facility] t Organization [facility] Address [address] [facility] [address] [place] [address] Phone Unavailable Care Team Providers Care Rotoprinter Name Role Phone ALEX BLEDSOE MD PCP Clarissa LA Attphys Unavailable ASA CORADO Attphys Unavailable MAHESH SHEA Attphys Unavailable BLEDSOE, SOUHEIL Attphys Unavailable Davie FELIX Attphys Unavailable ASA CORADO Admphys Unavailable MAHESH SHEA Admphys Unavailable BLEDSOE, SOUHEIL Admphys Unavailable Payers Payer Name Policy Type Policy Number Effective Date Expiration Date Reggie verdin Count Includes [facility] [place] [id number] 2018 00:00:00 [facility] [id number] 2018 00:00:00 [facility] Problems Condition Name Condition Details Condition Category Status Onset Date Resolution Date Last Treatment Date Treating Clinician Comments Source Chest pain Chest pain Problem Active C [facility] Dyspnea Dyspnea Problem Active [facility] Hypertension Hypertension Problem Active [facility] Hypomagnesemia Hypomagnesemia Problem Active [facility] Urinary tract infection UTI (urinary tract infection) Problem Active [facility] Allergies, Adverse Reactions, Alerts This patient has no known allergies or adverse reactions. Medications Ordered Medication Name Filled Medication Name Start Date Stop Da te Current Medication? Ordering Clinician Indication Dosage Frequency Signature (SIG) Comments Components Source Famotidine 20 Mg Tab, 20 Mg Oral Famotidine 20 Mg Tab, 20 Mg Oral 2019-10-23 00:00:00 2019-12-04 00:00:00 No Mahesh Shea Md 20 Every 12 Hours [facility] Albuterol Sulfate (Proair Hfa Inhaler*) 8.5 Gm Inh Alb uterol Sulfate (Proair Hfa Inhaler*) 8.5 Gm Inh Yes 2 As Needed [facility] Aspirin 81 Mg Tab.chew Aspirin 81 Mg Tab.chew Yes 81 Daily [facility] Atorvastatin Calcium 40 Mg Tablet Atorvastatin Calcium 40 Mg Tablet Yes 40 Bedtime [facility] Dorzolamide Hcl 10 Ml Drops Dorzolamide Hcl 10 Ml Drops Yes 1 Twice A Day [facility] Famotidine (Pepcid Ac) 10 Mg Tablet Famotidine (Pepcid Ac) 10 Mg Tabl et Yes 20 Bedtime [facility] Insulin Degludec (Tresiba Flextouch U-100) 100 Unit/1 Ml Insuln.pen Insulin Degludec (Tresiba Flextouch U-100) 100 Unit/1 Ml Insuln.pen Yes 18 Bedtime [facility] Insulin Lispro (Humalog Kwikpen U-200) 200 Unit/1 Ml I nsuln.pen Insulin Lispro (Humalog Kwikpen U-200) 200 Unit/1 Ml Insuln.pen Yes 8 Twice A Day [facility] Isosorbide Mononitrate 20 Mg Tablet Isosorbide Mononitrate 20 Mg Tabl et Yes 60 Daily [facility] Latanoprost 2.5 Ml Drops Latanoprost 2.5 Ml Drops Yes 1 Bedtime [facility] Losartan Potassium 100 Mg Tablet Losartan Potassium 100 Mg Tablet Yes 100 Daily [facility] Metformin Hcl 500 Mg Tablet Metformin Hcl 500 Mg Tablet Yes 2 Twice A Day [facility] Metoprolol Succinate 50 Mg Tab.er.24h Metoprolol Succinate 50 Mg Ta b.er.24h Yes 50 Daily [facility] Ranolazine (Ranexa) 500 Mg Tabsr Ranolazine (Ranexa) 500 Mg Tabsr Yes 500 Twice A Day [facility] Cefdinir (Omnicef) 300 Mg Capsule, 300 Mg Oral Cefdini r (Omnicef) 300 Mg Capsule, 300 Mg Oral 2019-10-23 00:00:00 No 300 Twi ce A Day [facility] Isosorbide Mononitrate 20 Mg Tablet, 60 Mg Oral Isosor bide Mononitrate 20 Mg Tablet, 60 Mg Oral 2019-10-22 00:00:00 No 60 Daily [facility] Ranolazine (Ranexa) 500 Mg Tabsr, 500 Mg Oral Ranolazi ne (Ranexa) 500 Mg Tabsr, 500 Mg Oral 2019-10-22 00:00:00 No 500 Twice A Day [facility] Procedures Procedure Date / Time Performed Performing Clinician Sourc e L HRT ART/GRFT ANGIO 2019-10-21 00:00:00 JUSTIN HI V [facility] X-ray of chest, single view 2019-10-13 00:00:00 ARIEL MAHMOOD [facility] Encounters Start Date/Time End Date/Time Encounter Type Admission Type Att[facility] Facility Care Department Encounter ID Source 2019-12-04 12:19:00 2019-12-05 15:58:00 Discharged Inpatient (obs) 3 ASA NEVAREZ [facility] [id number] [facility] 2019-10-21 23:37:00 2019-10-23 17:21:00 Discharged Inpatient (obs) 1 MAHESH SHEA [facility] [id number] [facility] 2019-10-13 13:27:00 2019-10-15 20:55:00 Discharged Inpatient (obs) 1 ALEX BLEDSOE [facility] [id number] [facility] 2018-07-04 12:42:00 2018-07-04 14:22:00 Departed Emergency Room 1 KATINA FELIX [facility] [id number] [facility] Results Test Description Test Time Test Comments Results Result Comments Source CHEST SINGLE (PORTABLE) 2020-03-23 00:06:00 [place] [address] Patient Name: MAXI JONES MR #: [id number] : 1950 Age/Sex: 69/F Req #: [id number] Adm Physician: Ordered by: CUCO LA MD Report #: [id number] Location: ER Room/Bed: Procedure: [id number] DX/CHEST SINGLE (PORTABLE) Exam Date: 03/22/20 Exam Time: 9620 REPORT STATUS: Signed EXAMINATION: CHEST SINGLE (PORTABLE) [...] Test Item Bedside Glucose (test code = 07506-3) 257 70-120 Meter ID: [id number] [facility] SINGLE (PORTABLE)2019-12-04 14:21:00 [facility] [address] [place] [address] Patient Name: MAXI JONES MR #: [id number] : 1950 Age/Sex: 69/F Req #: [id number] Adm Physician: ASA CORADO MD Ordered by: ASA CORADO MD Report #: [id number] Location: MED/SURG Room/Bed: [facility] Procedure: [id number] DX/CHEST SINGLE (PORTABLE) Exam Date: 12/04/19 Exam [...] 1422 COPY TO: ASA CORADO MD Sodium Mdskz2499-46-91 11:04:00* Test Item Value Reference Range Interpretation Comments Sodium Level (test code = 2951-2) 139 136-145 [facility] CenterPotassium Grpmm4134-06-00 11:04:00* Test Item Value Reference Range Interpretation Comments Potassium Level (test code = 2823-3) 4.7 3.5-5.1 [facility] CenterChloride Gdkpw7515-86-58 11:04:00* Test Item Value Reference Range Interpretation Comments Chloride Level (test code = 2075-0) 103 98-107 [facility] CenterCarbon Dioxide Hwbhn8968-57-59 11:04:00* Test Item Value Reference Range Interpretation Comments Carbon Dioxide Level (test code = 2028-9) 25 22-29 [facility] CenterAnion Dbw5116-66-89 11:04:00* Test Item Value Reference Range Interpretation Comments Anion Gap (test code = 24434-3) 15.7 8-16 [facility] CenterBlood Urea Ojcajshn1440-79-80 11:04:00* Test Item Value Reference Range Interpretation Comments Blood Urea Nitrogen (test code = 3094-0) 12 7-26 [facility] CenterCreatinine2020-02-05 11:04:00* Test Item Value Reference Range Interpretation Comments Creatinine (test code = 2160-0) 0.94 0.57-1.11 [facility] CenterBUN/Creatinine Hbzdl6228-27-35 11:04:00* Test Item Value Reference Range Interpretation Comments BUN/Creatinine Ratio (test code = 3097-3) 13 6-25 [facility] CenterEstimat Glomerular Filtration Rate 2019-12-02 11:04:00* Test Item Value Reference Range Interpretation Comments Estimat Glomerular Filtration Rate (test code = 489313250) 59 >60 Ranges were taken from the National Kidney Disease Education Program and the [facility] Kidney Foundation literature.Reference ranges:60 or greater: Oiqcag78-64 ( for 3 consecutive months): Chronic kidney disease 15 or less: Kidney failureSaint Camillus Medical CenterGlucose Wuzhj8812-38-55 11:04:00* Test Item Value Reference Range Interpretation Comments Glucose Level (test code = CKL3456) 169 74-118 [facility] CenterCalcium Cvaxj6071-26-89 11:04:00* Test Item Value Reference Range Interpretation Comments Calcium Level (test code = 73469-0) 9.6 8.4-10.2 [facility] CenterProthrombin Jquy6941-73-47 10:54:00* Test Item Value Reference Range Interpretation Comments Prothrombin Time (test code = 5902-2) 12.8 11.9-14.5 [facility] CenterProthromb Time International Ratio 2019-12-02 10:54:00* Test Item Value Reference Range Interpretation Comments Prothromb Time International Ratio (test code = 6301-6) 0.94 Oral Anticoagulant Therapy INR Values:1. Low Intensity Therapy 1.5 - 2.02 . Moderate Intensity Therapy 2.0 - 3.03. High Intensity Therapy(1) 2.5 - 3. 54. High Intensity Therapy(2) 3.0 - 4.05. Panic Value INR > 5.0 [facility] CenterWhite Blood Coupn5105-11-11 10:47:00* Test Item Value Reference Range Interpretation Comments White Blood Count (test code = 6690-2) 8.49 4.8-10.8 [facility] CenterRed Blood Tgdqm1754-87-94 10:47:00* Test Item Value Reference Range Interpretation Comments Red Blood Count (test code = 789-8) 4.13 3.6-5.1 [facility] CenterHemoglobin2020-02-05 10:47:00* Test Item Value Reference Range Interpretation Comments Hemoglobin (test code = 03094-6) 10.7 12.0-16.0 [facility] CenterHematocrit2020-02-05 10:47:00* Test Item Value Reference Range Interpretation Comments Hematocrit (test code = 4544-3) 34.3 34.2-44.1 [facility] CenterMean Corpuscular Lnotvf3823-38-54 10:47:00* Test Item Value Reference Range Interpretation Comments Mean Corpuscular Volume (test code = 787-2) 83.1 81-99 [facility] CenterMean Corpuscular Llykekfrfn8033-22-07 10:47:00* Test Item Value Reference Range Interpretation Comments Mean Corpuscular Hemoglobin (test code = 785-6) 25.9 28-32 [facility] CenterMean Corpuscular Hemoglobin Concent 2019-12-02 10:47:00* Test Item Value Reference Range Interpretation Comments Mean Corpuscular Hemoglobin Concent (test code = 786-4) 31.2 31-35 [facility] CenterRed Cell Distribution Jlcoe8655-84-98 10:47:00* Test Item Value Reference Range Interpretation Comments Red Cell Distribution Width (test code = 51173-3) 15.2 11.7 -14.4 [facility] CenterPlatelet Cvrvv6214-37-26 10:47:00* Test Item Value Reference Range Interpretation Comments Platelet Count (test code = 777-3) 225 140-360 [facility] CenterNeutrophils (%) (Auto)2019-12-02 10:47:00 * Test Item Value Reference Range Interpretation Comments Neutrophils (%) (Auto) (test code = 87406-5) 60.5 38.7-80.0 [facility] CenterLymphocytes (%) (Auto)2019-12-02 10:47:00 * Test Item Value Reference Range Interpretation Comments Lymphocytes (%) (Auto) (test code = 736-9) 30.3 18.0-39.1 [facility] CenterMonocytes (%) (Auto)2019-12-02 10:47:00* Test Item Value Reference Range Interpretation Comments Monocytes (%) (Auto) (test code = 5905-5) 6.6 4.4-11.3 [facility] CenterEosinophils (%) (Auto)2019-12-02 10:47:00 * Test Item Value Reference Range Interpretation Comments Eosinophils (%) (Auto) (test code = 713-8) 2.0 0.0-6.0 [facility] CenterBasophils (%) (Auto)2019-12-02 10:47:00* Test Item Value Reference Range Interpretation Comments Basophils (%) (Auto) (test code = 706-2) 0.2 0.0-1.0 [facility] CenterIM GRANULOCYTES %2019-12-02 10:47:00* Test Item Value Reference Range Interpretation Comments IM GRANULOCYTES % (test code = IM GRANULOCYTES %) 0.4 0.0- 1.0 [facility] CenterNeutrophils # (Auto)2019-12-02 10:47:00* Test Item Value Reference Range Interpretation Comments Neutrophils # (Auto) (test code = 751-8) 5.1 2.1-6.9 [facility] CenterLymphocytes # (Auto)2019-12-02 10:47:00* Test Item Value Reference Range Interpretation Comments Lymphocytes # (Auto) (test code = 51099-3) 2.6 1.0-3.2 [facility] CenterMonocytes # (Auto)2019-12-02 10:47:00* Test Item Value Reference Range Interpretation Comments Monocytes # (Auto) (test code = 742-7) 0.6 0.2-0.8 [facility] CenterEosinophils # (Auto)2019-12-02 10:47:00* Test Item Value Reference Range Interpretation Comments Eosinophils # (Auto) (test code = 711-2) 0.2 0.0-0.4 [facility] CenterBasophils # (Auto)2019-12-02 10:47:00* Test Item Value Reference Range Interpretation Comments Basophils # (Auto) (test code = 704-7) 0.0 0.0-0.1 [facility] CenterAbsolute Immature Granulocyte (auto 2019-12-02 10:47:00* Test Item Value Reference Range Interpretation Comments Absolute Immature Granulocyte (auto (kannan t code = Absolute Immature Granulocyte (auto) 0.03 0-0.1 [facility] Test - Treadmill ZRNT5859-48-95 11:21:00 [facility] [address] [place] [address] Patient Name : MAXI JONES MR #: [id number] : 1950 Age/Sex: 69/F Adm Physician : MAHESH SHEA MD Admit Date : 10/21/19 Location : MED/SURG Room/Bed : [facility] REPORT: Stephan gonzales Stress Test DATE OF STUDY: 10/22/2019 06:57:00 Stress Test - Treadmi ll ONLY PROCEDURE: Rest/stress single isotope SPECT imaging with pharmaco logic stress and gated SPECT imaging. INDICATION: Chest pain. PA OCEDURE IN DETAIL: Pharmacologic stress testing was [...] Harry Gross MD ABS/DAYDAYL Job #: [id number] Signature Date Dictated By: HARRY GROSS MD Transcribed By: MODL on 10/27/19 <Electronically signed by HARRY GROSS MD><<Signature on File>>10/27/19 4625 COPY TO: Creatine Kinase MB 2019-10-22 14:33:00* Test Item Value Reference Range Interpretation Comments Creatine Kinase MB (test code = 16903-5) 2.40 0-5.0 [facility] CenterTroponin Z8404-75-66 14:33:00* Test Item Value Reference Range Interpretation Comments Troponin I (test code = LRB2719) 0.068 0-0.300 [facility] CenterCreatine Oxsxqy4091-57-26 14:25:00* Test Item Value Reference Range Interpretation Comments Creatine Kinase (test code = 2157-6) 57 29-168 [facility] CenterHemoglobin A1c Kmdzffs8020-63-63 06:52:00 * Test Item Value Reference Range Interpretation Comments Hemoglobin A1c Percent (test code = Hemoglobin A1c Percent) 9.3 4.0-7.0 [facility] CenterTriglycerides Jcbbx2086-20-31 06:15:00* Test Item Value Reference Range Interpretation Comments Triglycerides Level (test code = 2571-8) 87 0-149 [facility] CenterCholesterol Glfzg9567-61-29 06:15:00* Test Item Value Reference Range Interpretation Comments Cholesterol Level (test code = 2093-3) 119 0-199 Less than 200 mg/dL Low Kujj350 - 239 mg/dL Borderline Vxif302 m g/dl and greater High Risk [facility] CenterLDL Hyeeddoftvj9320-26-13 06:15:00* Test Item Value Reference Range Interpretation Comments LDL Cholesterol (test code = 2089-1) 51 60-130 [facility] CenterHDL Hxzsyagviog9363-28-43 06:15:00* Test Item Value Reference Range Interpretation Comments HDL Cholesterol (test code = 2085-9) 51 40-60 [facility] CenterCholesterol/HDL Jycqj4493-78-22 06:15:00 * Test Item Value Reference Range Interpretation Comments Cholesterol/HDL Ratio (test code = 9830-1) 2.3 3.0-3.6 [facility] CenterB-Type Natriuretic Uosjowd5758-84-37 23:47:00* Test Item Value Reference Range Interpretation Comments B-Type Natriuretic Peptide (test code = 76859-8) 98.8 0-100 [facility] CenterCHEST SINGLE (PORTABLE)2019-10-21 22:58:00 [place] [address] Patient Name: MAXI JONES MR #: [id number] : 1950 Age/Sex: 69/F Req #: [id number] Adm Physician: Ordered by: PRAVEEN MONDRAGON NP Report #: [id number] Location: ER Room/Bed: Procedure: [id number] DX/CHEST [...] By: MICKEY on 10/21/192258 COPY TO: PRAVEEN MONDRAOGN NP Magnesium Qgnow0248-35-89 22:47:00* Test Item Value Reference Range Interpretation Comments Magnesium Level (test code = 83332-6) 1.3 1.3-2.1 [facility] CenterTotal Adrmkzfmd2752-43-38 22:47:00* Test Item Value Reference Range Interpretation Comments Total Bilirubin (test code = 1975-2) 0.3 0.2-1.2 [facility] CenterAspartate Amino Transf (AST/SGOT) 2019-10-21 22:47:00* Test Item Value Reference Range Interpretation Comments Aspartate Amino Transf (AST/SGOT) (test code = Aspartate Amino Transf (AST/SGOT)) 23 5-34 [facility] CenterAlanine Aminotransferase (ALT/SGPT) 2019-10-21 22:47:00* Test Item Value Reference Range Interpretation Comments Alanine Aminotransferase (ALT/SGPT) (test code = 1742-6) 18 0-55 [facility] CenterTotal Ulepemo0530-98-36 22:47:00* Test Item Value Reference Range Interpretation Comments Total Protein (test code = 2885-2) 7.1 6.5-8.1 [facility] CenterAlbumin2019-12-25 22:47:00* Test Item Value Reference Range Interpretation Comments Albumin (test code = 1751-7) 3.5 3.5-5.0 [facility] CenterGlobulin2019-12-25 22:47:00* Test Item Value Reference Range Interpretation Comments Globulin (test code = 85799-4) 3.6 2.3-3.5 [facility] CenterAlbumin/Globulin Ijcwc1551-55-73 22:47:00 * Test Item Value Reference Range Interpretation Comments Albumin/Globulin Ratio (test code = 1759-0) 1.0 0.8-2.0 [facility] CenterAlkaline Eeyjzgvbkah2452-48-48 22:47:00* Test Item Value Reference Range Interpretation Comments Alkaline Phosphatase (test code = 6768-6) 65 40-150 [facility] CenterActivated Partial Thromboplast Time 2019-10-21 22:35:00* Test Item Value Reference Range Interpretation Comments Activated Partial Thromboplast Time (test code = 32396-8) 25.2 23.8-35.5 [facility] CenterPhosphorus Ztamx7072-37-51 05:32:00* Test Item Value Reference Range Interpretation Comments Phosphorus Level (test code = SJP9343) 3.4 2.3-4.7 [facility] CenterCHEST SINGLE (NOT PORTABLE)2019-10-13 15:09:00 [place] [address] Patient Name: MAXI JONES MR #: [id number] : 1950 Age/Sex: 69/F Req #: [id number] Adm Physician: ALEX BLEDSOE MD Ordered by: ARIEL MAHMOOD MD, MD Report #: [id number] Location: [facility] Room/Bed: [place] [address] Procedure: [id number] DX/CHEST SINGLE (NOT PORTABLE) [...] on 10/13/19 1513 COPY TO: ARIEL MAHMOOD Bnmchw2046-87-12 15:06:00* Test Item Value Reference Range Interpretation Comments Lipase (test code = 3040-3) 49 8-78 [facility] CenterUrine MPX5695-78-38 14:45:00* Test Item Value Reference Range Interpretation Comments Urine WBC (test code = 5821-4) 0-5 0-5 [facility] CenterUrine XOJ6621-95-63 14:45:00* Test Item Value Reference Range Interpretation Comments Urine RBC (test code = 33995-3) NONE 0-5 [facility] CenterUrine Dkyhloki7988-21-56 14:45:00* Test Item Value Reference Range Interpretation Comments Urine Bacteria (test code = 10925-4) MANY NONE [facility] CenterUrine Epithelial Ntyef0166-99-38 14:45:00 * Test Item Value Reference Range Interpretation Comments Urine Epithelial Cells (test code = 87427-6) NONE NONE [facility] CenterUrine Tposl0001-17-03 14:26:00* Test Item Value Reference Range Interpretation Comments Urine Color (test code = 5778-6) YELLOW YELLOW [facility] CenterUrine Gxuvkes6097-44-37 14:26:00* Test Item Value Reference Range Interpretation Comments Urine Clarity (test code = 99914-3) SL CLOUDY CLEAR [facility] Specific Squeenl2071-98-84 14:26:00 * Test Item Value Reference Range Interpretation Comments Urine Specific [place] (test code = 5811-5) 1.025 1.010-1.02 5 [facility] CenterUrine lE7348-61-76 14:26:00* Test Item Value Reference Range Interpretation Comments Urine pH (test code = 09914-2) 6 5-7 [facility] Leukocyte Bqgxerfr4038-71-11 14:26:00* Test Item Value Reference Range Interpretation Comments Urine Leukocyte Esterase (test code = 5799-2) NEGATIVE NEGATIVE [facility] Qqzikkm7881-42-13 14:26:00* Test Item Value Reference Range Interpretation Comments Urine Nitrite (test code = 68424-8) POSITIVE NEGATIVE [facility] CenterUrine Twbjnol0798-78-28 14:26:00* Test Item Value Reference Range Interpretation Comments Urine Protein (test code = 5804-0) NEGATIVE NEGATIVE [facility] Glucose (UA)2019-10-13 14:26:00* Test Item Value Reference Range Interpretation Comments Urine Glucose (UA) (test code = 2349-9) 1+ NEGATIVE [facility] CenterUrine Xhfnfer5191-61-55 14:26:00* Test Item Value Reference Range Interpretation Comments Urine Ketones (test code = 21987-5) NEGATIVE NEGATIVE [facility] CenterUrine Joesmmtqkumw7580-81-92 14:26:00* Test Item Value Reference Range Interpretation Comments Urine Urobilinogen (test code = 02707-4) 0.2 0.2-1 [facility] CenterUrine Ccgiwxioj5037-25-63 14:26:00* Test Item Value Reference Range Interpretation Comments Urine Bilirubin (test code = 1978-6) NEGATIVE NEGATIVE [facility] Mqwes3816-25-46 14:26:00* Test Item Value Reference Range Interpretation Comments Urine Blood (test code = 68829-9) NEGATIVE NEGATIVE [facility] - TUCG3839-35-55 14:01:00 [facility] [address] [place] [address] Patient Name: MAXI JONES MR #: [id number] : 1950 Age/Sex: 67/F Req #: [id number] Adm Physician: Ordered by: KATINA FELIX MD Report #: [id number] Location: [facility] Room/B ed: Procedure: [id number] HOPD/CXR 2 VIEW - HOPD Exam Date: [...]
--- NOTE | 2020-03-23 15:20 | NUR ---
Paged Dr.Patel Raymond to notify of echo results and to receive clarification on Heparin. Waiting call back.
[2020-03-23] MEDS: INSULIN LISPRO 100 UNIT/1 ML 3ML VIAL SQ SCH (16:30)
--- NOTE | 2020-03-23 17:27 | NUR ---
Dr.K Puentes aware of Echo 20%. Aware of troponin 1.410. Patient denies chest pain. No new orders
--- NOTE | 2020-03-23 18:36 | Consultation ---
DATE OF CONSULTATION: 03/23/2020 Cardiology consultation. HISTORY OF PRESENT ILLNESS: This is a 69-year-old woman with a history of coronary artery disease status post coronary artery bypass graft surgery, chronic systolic congestive heart failure, status post biventricular ICD, hypertension, hyperlipidemia, diabetes mellitus, who presented to the emergency department with precordial pain. The patient's symptoms were mild, occurred at rest, nonradiating. No exacerbating or relieving factors, associated with some mild shortness of breath. The patient was noted to have mild elevation of her cardiac troponins. She was taken to the lab assistant, which showed 2 patent grafts with an occluded saphenous vein graft with collaterals from the RCA to the circumflex. Medical management was recommended. REVIEW OF SYSTEMS: A 12-point review of system was conducted, is negative except as stated above in the HPI. PAST MEDICAL HISTORY: As stated above in the HPI. PAST SURGICAL HISTORY: As stated above in the HPI. FAMILY HISTORY: Noncontributory. CURRENT SOCIAL HISTORY: No illicit drug, alcohol, or tobacco use. ALLERGIES: NO KNOWN DRUG ALLERGIES. MEDICATIONS: See medication reconciliation form. PHYSICAL EXAMINATION: VITAL SIGNS: She is afebrile, heart rate is 67, respirations are 13, blood pressure is 130/67, ox saturation is 100% on room air. GENERAL: Well appearing, well built, no apparent distress. Alert and orient x3. HEAD: Normocephalic and atraumatic. Eyes, the extraocular muscles are intact. Conjunctivae clear. NECK: No JVD. No bruits. CARDIOVASCULAR: She has regular rate and rhythm. No murmurs. LUNGS: Clear to auscultation. ABDOMEN: Soft, nontender, nondistended. EXTREMITIES: No clubbing, cyanosis, or edema. VASCULAR: 2+ pulses. SKIN: Warm and dry, intact. NEUROLOGIC: No focal deficits noted. Cranial nerves grossly intact. PSYCHIATRIC: Normal mood, affect. LABORATORY DATA: All laboratory data reviewed. Glucose is 307. Troponin I is 1.9. BNP is 82. Creatinine is 1.13. A 12-lead electrocardiogram showed a ventricular paced rhythm. IMPRESSION: 1. Pfx-NN-ufsbmodqc myocardial infarction. 2. Coronary artery disease status post bypass surgery. 3. Chronic systolic congestive heart failure, status post implantable cardioverter-defibrillator. 4. Hypertension. 5. Hyperglycemia. 6. Diabetes mellitus. 7. Precordial pain. RECOMMENDATIONS: The patient was taken to the lab assistant. Her cardiac anatomy is unchanged. She has two patent grafts with a DOTSON to the LAD and a saphenous vein graft to the right coronary artery. There are collaterals from the posterior lateral branch to the circumflex. No intervention is required. We will initiate clopidogrel and continue all other current home cardiovascular medications. A 2D echocardiogram has been ordered. We will continue to follow along with you. DO ANNITA Castano/MODL /[id number]
--- NOTE | 2020-03-23 19:15 | NUR ---
Bedside nursing shift report with morning nurse. Pt alert and orient, lying in bed HOB 30 degrees. Denies pain at this time. Call light within reach. Bed low and locked.
--- NOTE | 2020-03-23 19:20 | NUR ---
Report given to oncoming nurse of patient's status. Resting in bed. No s/s of acute distress noted. Denies chest pain. Side rails upx2, call light within reach.
[2020-03-23] MEDS ORDERED: FAMOTIDINE 20 MG TAB PO SCH (21:00)
[2020-03-23] MEDS ORDERED: PANTOPRAZOLE SOD 40 MG TABEC PO SCH (21:00)
[2020-03-23] MEDS ORDERED: ATORVASTATIN 40 MG TAB PO SCH (21:00)
[2020-03-23] MEDS ORDERED: LATANOPROST(OPTH) 2.5 ML BTL OP SCH (21:00)
[2020-03-23 22:15] LABS: CREATINE KINASE MB 7.1 ng/mL (0-5.0)
[2020-03-24] VITALS: BP 114/64
--- NOTE | 2020-03-24 01:09 | NUR ---
Spoke with Dr. Duran regarding elevated troponin, ordered Heparin drip per protocol and inform cardiac on patient's case.
--- NOTE | 2020-03-24 01:13 | NUR ---
Left voicemail Dr. Jakub Puentes regarding patient's elevated troponin, heparin order, and any further orders. Awaiting callback. Pt denies chest pain at this time. No acute distress noted.
[2020-03-24] MEDS ORDERED: HEPARIN 25,000 UNIT 600 UNIT in DEXTROSE 5% 250ML 250 ML IV SCH ×3 (01:15→03:45)
[2020-03-24 02:08] LABS: BASOPHILS % 0.2 % (0.0-1.0); EOSINOPHILS # (AUTO) 0.2 (0.0-0.4); EOSINOPHILS % 1.6 % (0.0-6.0); HEMATOCRIT 36.8 % (34.2-44.1); HEMOGLOBIN 11.3 g/dL (12.0-16.0); LYMPHOCYTES # (AUTO) 3.7 (1.0-3.2); LYMPHOCYTES % 28.5 % (18.0-39.1); MEAN CORPUSCULAR HEMOGLOBIN 24.2 pg (28-32); MEAN CORPUSCULAR HGB CONC 30.7 g/dL (31-35); MONOCYTES % 7.7 % (4.4-11.3); NEUTROPHILS % 61.5 % (38.7-80.0); PLATELET COUNT 273 x10e3/uL (140-360); RED BLOOD COUNT 4.66 x10e6/uL (3.6-5.1); RED CELL DISTRIBUTION WIDTH 15.8 % (11.7-14.4)
[2020-03-24 02:19] LABS: INR 0.89; PROTHROMBIN TIME 12.6 seconds (11.9-14.5)
[2020-03-24 02:20] LABS: PARTIAL THROMBOPLASTIN TIME 22.2 seconds (23.8-35.5)
[2020-03-24] MEDS ORDERED: HEPARIN 25,000 UNIT DRIP IV ONE (02:54)
[2020-03-24 04:00] VITALS: BP 105/54
--- NOTE | 2020-03-24 06:00 | NUR ---
D/C summary Principal dx: NSTEMI- cardio; plavix/statin/BB/asa/aceI; LHC no intervention Hypertensive heart ds- BB Secondary dx: CAD with hx CABG- meds as above HLD- statin Overweight BMI 27.3- as above DM2- hba1c/lipids 5-28 Hba1c is 8.1 d/c home with imdur and plavix stable d/c>35mins f/u pcp 2-4 days and 1 week Mahesh Duran MD, PhD.
[2020-03-24 06:19] LABS: CHOL/HDL RATIO 2.1 (3.0-3.6)
--- NOTE | 2020-03-24 07:06 | NUR ---
Report given to morning nurse, Pt resting in bed. No s/s of acute distress noted. Call light within reach.
[2020-03-24] MEDS: INSULIN REGULAR, HUMAN 100 UNIT/1 ML 3ML VIAL SQ SCH (07:30)
[2020-03-24] MEDS: INSULIN LISPRO 100 UNIT/1 ML 3ML VIAL SQ SCH (07:30)
[2020-03-24 08:07] VITALS: BP 107/49
[2020-03-24 08:14] VITALS: BP 107/49
[2020-03-24] MEDS: METOPROLOL SUCCINATE 50 MG TAB XL PO SCH (08:35)
[2020-03-24] MEDS: FUROSEMIDE INJ 10 MG/ML 4 ML VIAL IV SCH (08:35)
[2020-03-24] MEDS: RANOLAZINE 500 MG TABSR PO SCH (08:35)
[2020-03-24] MEDS ORDERED: ASPIRIN 81 MG CHEW TAB PO SCH (09:00)
[2020-03-24] MEDS ORDERED: ASPIRIN 81 MG ENTERIC COATED PO SCH (09:00)
[2020-03-24] MEDS ORDERED: ISOSORBIDE MONONITRATE 30 MG TAB CR PO SCH (09:00)
[2020-03-24] MEDS ORDERED: HEPARIN 25,000 UNIT 700 UNIT in DEXTROSE 5% 250ML 250 ML IV SCH (12:00)
[2020-03-24] MEDS ORDERED: DEXTROSE 50% SYRINGE 50 ML IV PRN ×2 (13:00)
--- NOTE | 2020-03-24 13:23 | NUR ---
Patient ptt came back at 45. Patient heparin changed to 700 units/hr/ 7 mL/hr, per protocol to get to therapeutic level. Another ptt was ordered for 1500 today to see where the ptt is. Patient blood sugar was also very elevated at 361, and per protocol, this field underwriter called the Dr. Dr. Duran ordered a medium sliding scale and 7 units of Lantus NOW and HS. Doses administered per protocol, patient had no issues or complaints. Will continue to monitor.
[2020-03-24] MEDS ORDERED: INSULIN GLARGINE 100 UNITS/ML VIAL SQ SCH (13:30)
--- NOTE | 2020-03-24 15:30 | Progress Note ---
DATE: 03/24/2020 Cardiology Progress Note SUBJECTIVE: The patient is feeling better. Denies any chest pain or shortness of breath. OBJECTIVE: VITAL SIGNS: Temperature is 97.9, heart rate is 92, respirations are 19, and blood pressure is 107/49. GENERAL: Well-appearing, well-built, in no apparent distress. Alert and oriented x3. HEAD: Normocephalic and atraumatic. CARDIOVASCULAR: Regular rate and rhythm. LUNGS: Clear to auscultation. ABDOMEN: Soft, nontender, and nondistended. EXTREMITIES: Trace edema. IMPRESSION: 1. Iha-ZN-ypvubqoif myocardial infarction due to small vessel disease. 2. Coronary artery disease, status post bypass surgery. 3. Chronic systolic congestive heart failure, status post implantable cardioverter-defibrillator. 4. Hypertension. 5. Hyperglycemia. 6. Diabetes mellitus. RECOMMENDATIONS: No intervention was required on her coronary anatomy. She has 2 patent grafts with a DOTSON to the LAD and a saphenous vein graft to the right coronary artery. There are collaterals from the posterior lateral branch to the circumflex area. We will titrate antianginal medications. Continue clopidogrel as well. Edson Pierson DO BM/MODL /[id number]
[2020-03-24] MEDS ORDERED: PLAVIX75 MG PO (15:34)
[2020-03-24] MEDS ORDERED: Isosorbide Mononitrate PO (15:34)
[2020-03-24] MEDS ORDERED: INSULIN REGULAR, HUMAN 100 UNIT/1 ML 3ML VIAL SQ SCH (16:30)
--- NOTE | 2020-03-24 17:19 | NUR ---
Patient was seen by Dr. Pierson and her heparin drip was discontinued. Dr. Pierson wrote 2 prescriptions for her to go home with and discharged her from tube wrapper standpoint. This typewriter repairer called Dr. Duran and updated him, he agreed that she could go home. Patient's IVs were both removed and covered with a dry dressing at 1630. Patient was given discharge instructions and new prescriptions. Patient was explained when to follow up and who to follow up with and to bring her new prescriptions to the pharmacy to get filled. Patient had no questions or complaints. Patient's telemetry was removed and she was brought to the front door via wheelchair.
--- NOTE | 2020-05-05 11:31 | Operative Report ---
DATE OF PROCEDURE: 03/23/2020 SURGEON: Edson Pierson DO PROCEDURES PERFORMED: 1. Conscious sedation, 30 minutes. 2. Selective coronary angiography x2. 3. Selective graft angiography x3. 4. Left heart catheterization. PREPROCEDURE DIAGNOSIS: Chest pain with known coronary artery disease, status post bypass surgery. POSTPROCEDURE DIAGNOSIS: Chest pain with known coronary artery disease, status post bypass surgery. ESTIMATED BLOOD LOSS: Less than 20 mL. SPECIMENS REMOVED: None. PROCEDURE IN DETAIL: After informed consent was obtained, the patient was brought to the cardiac catheterization laboratory in a fasting and nonsedated state. Bilateral groins were prepped and draped in usual sterile fashion. A 2% lidocaine was infiltrated over the right anterior groin for local anesthesia. The patient received midazolam, administered by the rd lab technician nurse and her physiologic and neurologic status were monitored by myself and the rd lab technician staff for 30 minutes. Using micropuncture needle, the right common femoral artery was accessed via modified Seldinger technique and a 6-Vincentian sheath was placed. Next, diagnostic coronary angiography x2 and graft angiography x3 were performed. Left heart catheterization was also performed. The patient tolerated the procedure well with no immediate complications and transferred back to room in stable condition. PROCEDURAL FINDINGS: 1. Left main coronary artery has a 50% to 60% stenosis. 2. Left anterior descending coronary artery is occluded in the mid portion. 3. The left circumflex coronary artery is occluded at the ostium. 4. The right coronary artery is occluded in the mid portion. 5. There is a saphenous vein graft, which is patent, anastomosed to the distal right coronary artery and provides antegrade flow into the posterior lateral and posterior descending coronary arteries. The posterior lateral branch provides collaterals to the obtuse marginal system. 6. There is an occluded saphenous vein graft seen that was likely anastomosed to the obtuse marginal. 7. The left internal mammary artery is patent and is anastomosed to the mid LAD with antegrade and retrograde flow. 8. Left ventricular end-diastolic pressure was 20 mmHg. No aortic valve gradient present upon pullback. IMPRESSION: Coronary artery disease with patent left internal mammary and saphenous vein grafts to the LAD and right coronary arteries respectively. Left circumflex coronary artery fills via collaterals. RECOMMENDATIONS: Medical therapy. DO ANNITA Castano/DAYDAYL /[id number]
== END 2020-03-24 16:46 | disposition home or self-care (01) ==
LOC: ER 23:19 → ERHOLD 03-23 05:35 → UNDOADMIN 03-23 05:35 → OR 03-23 14:36 → CATH LAB V 03-23 14:40 → MED/SURG3 03-23 14:49
PROVIDERS: ADMIT Internal Medicine; ATTEND Internal Medicine
DX: I21.4 Non-ST elevation (NSTEMI) myocardial infarction (principal); E66.3 Overweight; Z68.27 Body mass index [BMI] 27.0-27.9, adult; I25.10 Atherosclerotic heart disease of native coronary artery without angina pectoris; Z95.1 Presence of aortocoronary bypass graft; E78.5 Hyperlipidemia, unspecified; I11.0 Hypertensive heart disease with heart failure; I50.22 Chronic systolic (congestive) heart failure; Z95.810 Presence of automatic (implantable) cardiac defibrillator; E11.65 Type 2 diabetes mellitus with hyperglycemia; Z11.59 Encounter for screening for other viral diseases
CPT/HCPCS: 36415 ×3; 71045; 75605; 80053; 80061; 82550 ×2; 82553 ×2; 82948 ×2; 83036; 83880; 84484 ×2; 85025 ×2; 85379; 85610 ×2; 85730 ×3; 93005; 93306; 93459; 93567; 96360; 96361; 99285; C1760; G0378 ×2; J1644; J1817; J1940 ×2; J2001; J2250; J2270; J2405; J3010; J7030; Q9967; S0164; U0002; 99152; 99153

== ENCOUNTER → 2021-02-09 | Day surgery (SDC) | payer OTHER ==
[2021-02-06 10:26] LABS: BASOPHILS % 0.3 % (0.0-1.0); EOSINOPHILS # (AUTO) 0.2 (0.0-0.4); EOSINOPHILS % 1.7 % (0.0-6.0); HEMATOCRIT 34.1 % (34.2-44.1); HEMOGLOBIN 10.7 g/dL (12.0-16.0); LYMPHOCYTES # (AUTO) 2.4 (1.0-3.2); LYMPHOCYTES % 27.1 % (18.0-39.1); MEAN CORPUSCULAR HEMOGLOBIN 26.9 pg (28-32); MEAN CORPUSCULAR HGB CONC 31.4 g/dL (31-35); MEAN CORPUSCULAR VOLUME 85.7 fL (81-99); MONOCYTES # (AUTO) 0.7 (0.2-0.8); MONOCYTES % 7.7 % (4.4-11.3); NEUTROPHILS # (AUTO) 5.5 (2.1-6.9); NEUTROPHILS % 62.6 % (38.7-80.0); PLATELET COUNT 226 x10e3/uL (140-360); RED BLOOD COUNT 3.98 x10e6/uL (3.6-5.1); RED CELL DISTRIBUTION WIDTH 14.6 % (11.7-14.4)
[2021-02-06 10:43] LABS: ALANINE AMINOTRANSFERASE 15 IU/L (0-55); ALBUMIN 3.8 g/dL (3.5-5.0); ALBUMIN/GLOBULIN RATIO 1.3 (0.8-2.0); ALKALINE PHOSPHATASE 63 IU/L (40-150); ANION GAP 13.4 mmol/L (8-16); BLOOD UREA NITROGEN 15 mg/dL (7-26); BUN/CREATININE RATIO 18 (6-25); CALCIUM 8.8 mg/dL (8.4-10.2); CARBON DIOXIDE 27 mmol/L (22-29); CHLORIDE 104 mmol/L (98-107); CREATININE, SERUM 0.84 mg/dL (0.57-1.11); EST GLOMERULAR FILTRATION RATE > 60 ML/MIN (60-); GLUCOSE 218 mg/dL (74-118); POTASSIUM 4.4 mmol/L (3.5-5.1); SODIUM 140 mmol/L (136-145)
[2021-02-09] VITALS (10 sets, daily range): BP systolic 95–182; BP diastolic 52–66
[~2021-02-09] VITALS: Ht 152.4 cm; Wt 63.0 kg
[~2021-02-09] MED LIST changes: +ALPRAZOLAM 0.5 MG TAB ONE; +CALCIUM PO; +CENTRUM ADULTS1 EACH PO; +DIPHENHYDRAMINE HCL 25 MG CAP ONE; +FENTANYL CITRATE/PF 100MCG/2 ML INJ ONE; +HEPARIN SOD/SOD CHLORIDE 2,000 ML ONE; +IOPAMIDOL 370 MG/ML 200 ML INFUS..BTL INJ ONE; +Isosorbide Mononitrate PO; +LIDOCAINE HCL 2% LOCAL 20 ML VIAL ONE; +MIDAZOLAM HCL 2 MG/2 ML VIAL ONE; +OMEPRAZOLE40 MG PO; +PLAVIX75 MG PO; +SODIUM CHLORIDE 0.9% 1000ML 1,000 ML ONE
== END | disposition home or self-care (01) ==
LOC: CATH LAB 10:39
PROVIDERS: ATTEND Internal Medicine Interventional Cardiology
DX: I25.810 Atherosclerosis of coronary artery bypass graft(s) without angina pectoris (principal); I11.0 Hypertensive heart disease with heart failure; I50.22 Chronic systolic (congestive) heart failure; I44.7 Left bundle-branch block, unspecified; R94.39 Abnormal result of other cardiovascular function study; E11.9 Type 2 diabetes mellitus without complications; Z01.812 Encounter for preprocedural laboratory examination; Z20.822 Contact with and (suspected) exposure to COVID-19; Z79.02 Long term (current) use of antithrombotics/antiplatelets; Z79.4 Long term (current) use of insulin; Z79.82 Long term (current) use of aspirin; Z95.810 Presence of automatic (implantable) cardiac defibrillator; Z95.1 Presence of aortocoronary bypass graft
CPT/HCPCS: 36415; 76937; 80053; 82948; 83880; 85025; 93455; 99152; C1894; J2001; J2250; J3010; J7030; Q9967; U0002

== ENCOUNTER 2025-04-23 16:43 | Emergency (ER) | payer MEDICARE, OTHER ==
[~2025-04-23] VITALS: Ht 144.8 cm; Wt 49.9 kg
[~2025-04-23 16:43] MED LIST changes: -ALPRAZOLAM 0.5 MG TAB ONE; +BUMETANIDE1 MG PO; +CIPRO500 MG PO; +CLONIDINE HCL0.1 MG PO; +CLOPIDOGREL75 MG PO; +COZAAR25 MG PO; -DIPHENHYDRAMINE HCL 25 MG CAP ONE; -FENTANYL CITRATE/PF 100MCG/2 ML INJ ONE; +GLIPIZIDE ER5 MG PO; -HEPARIN SOD/SOD CHLORIDE 2,000 ML ONE; -IOPAMIDOL 370 MG/ML 200 ML INFUS..BTL INJ ONE; -LIDOCAINE HCL 2% LOCAL 20 ML VIAL ONE; +MECLIZINE HCL12.5 MG PO; -MIDAZOLAM HCL 2 MG/2 ML VIAL ONE; +RANOLAZINE ER1000 MG PO; -SODIUM CHLORIDE 0.9% 1000ML 1,000 ML ONE; +SPIRONOLACTONE25 MG PO; +TOPROL XL50 MG PO
[2025-04-23 16:53] VITALS: TEMP 97.9
[2025-04-23] MEDS: ONDANSETRON HCL 4 MG ORAL DISINTEGRATING TAB PO ONE (17:31)
[2025-04-23] MEDS: INSULIN LISPRO 100 UNIT/1 ML 3ML VIAL SQ SCH (19:37)
[2025-04-23] MEDS: SODIUM CHLORIDE 0.9% 1000ML 1,000 ML IV STA (19:40)
[2025-04-23 19:45] VITALS: PULSE 73; RESP 16
[2025-04-23] MEDS: SODIUM CHLORIDE 0.9% 1000ML 1,000 ML IV ONE (20:27)
[2025-04-23] MEDS: CALCIUM GLUC 1 G/50 ML NACL 50 ML IV ONE (20:29)
[2025-04-23] MEDS: ALBUTEROL SULF 0.083% NEB SOLN 3 ML NEB NEB STA (20:32)
[2025-04-23] MEDS: INSULIN REGULAR, HUMAN 100 UNIT/1 ML SQ ONE (20:33)
[2025-04-23] MEDS ORDERED: ONDANSETRON ODT4 MG PO (22:36)
[2025-04-23 23:42] VITALS: BP 123/60; PULSE 74; RESP 18; TEMP 98.1; O2SAT 99
== END 2025-04-23 22:30 | disposition home or self-care (01) ==
LOC: FSED 16:56
DX: R42 Dizziness and giddiness (principal); R55 Syncope and collapse; E86.0 Dehydration; E87.5 Hyperkalemia; I10 Essential (primary) hypertension; E11.65 Type 2 diabetes mellitus with hyperglycemia; J44.9 Chronic obstructive pulmonary disease, unspecified; I48.91 Unspecified atrial fibrillation; I25.10 Atherosclerotic heart disease of native coronary artery without angina pectoris; E78.5 Hyperlipidemia, unspecified; K21.9 Gastro-esophageal reflux disease without esophagitis; I25.2 Old myocardial infarction; Z95.4 Presence of other heart-valve replacement
CPT/HCPCS: 70450; 80053; 81003; 84484; 85025; 93005; 99284; J7030; Q0162

== ENCOUNTER 2025-04-26 21:30 | Inpatient (IN) | payer MEDICARE, OTHER ==
[~2025-04-26] VITALS: Ht 144.8 cm; Wt 49.9 kg
[~2025-04-26 21:30] MED LIST changes: +ONDANSETRON ODT4 MG PO
[2025-04-26 21:44] VITALS: PULSE 71; RESP 18; TEMP 98.2
[2025-04-26] MEDS: SODIUM CHLORIDE 0.9% 1000ML 1,000 ML IV STA (22:21)
[2025-04-26] MEDS ORDERED: Morphine 4mg INJECTION 4 MG/ML INJ IV PRN (23:15)
[2025-04-26] MEDS ORDERED: FUROSEMIDE INJ 10 MG/ML 4 ML VIAL ONE (23:48)
[2025-04-26] MEDS: FUROSEMIDE INJ 10 MG/ML 10 ML VIAL IV ONE (23:58)
[2025-04-27] VITALS (8 sets, daily range): BP systolic 111–138; BP diastolic 44–63; PULSE 65–74; RESP 17–20; TEMP 97.7–98.9; O2SAT 98–100
[2025-04-27] MEDS: ONDANSETRON HCL INJ 2MG/ML 2ML 2 MG/ML VIAL IV PRN (00:05)
[2025-04-27] MEDS ORDERED: SODIUM BICARBONATE 8.4% 50 ML VIAL ONE (00:39)
[2025-04-27] MEDS ORDERED: SODIUM CHLORIDE 0.9% 1000ML 1,000 ML ONE (00:40)
[2025-04-27] MEDS: SODIUM BICARBONATE 8.4% INJ 50 ML SYR IV STA (00:48)
[2025-04-27] MEDS: SODIUM CHLORIDE 0.9% 1000ML 1,000 ML IV SCH (00:49)
[2025-04-27] MEDS: INSULIN REGULAR, HUMAN 100 UNIT/1 ML IV ONE (01:32)
[2025-04-27] MEDS ORDERED: ONDANSETRON ODT4 MG PO (02:15)
[2025-04-27] MEDS ORDERED: FUROSEMIDE40 MG PO (02:15)
[2025-04-27 03:26] LABS: LEUKOCYTE ESTERASE ,URINE TRACE (NEGATIVE); PROTEIN,URINE DIPSTICK NEGATIVE (NEGATIVE); URINE UROBILINOGEN 0.2 mg/dL (0.2 - 1)
[2025-04-27 03:52] LABS: EPITHELIAL CELLS,URINE FEW /LPF
[2025-04-27 06:00] LABS: BASOPHILS % 0.3 % (0.0-1.0); EOSINOPHILS % 0.8 % (0.0-6.0); LYMPHOCYTES % 29.0 % (18.0-39.1); MONOCYTES % 8.7 % (4.4-11.3); NEUTROPHILS % 59.9 % (38.7-80.0); RED CELL DISTRIBUTION WIDTH 14.7 % (11.7-14.4)
[2025-04-27 06:37] LABS: EST GLOMERULAR FILTRATION RATE 36.0 ML/MIN (>=60)
[2025-04-27] MEDS ORDERED: CLONIDINE HCL 0.1 MG TAB PO PRN (10:00)
[2025-04-27] MEDS ORDERED: ACETAMINOPHEN 325 MG TAB PO PRN (10:00)
[2025-04-27] MEDS ORDERED: DEXTROSE 50% SYRINGE 50 ML IV PRN (10:00)
[2025-04-27] MEDS ORDERED: MECLIZINE HCL 12.5 MG TAB PO PRN (10:00)
[2025-04-27] MEDS: INSULIN LISPRO 100 UNIT/1 ML 3ML VIAL SQ SCH (12:42)
[2025-04-27] MEDS: RANOLAZINE 500 MG TABSR PO SCH (17:21)
[2025-04-27] MEDS: ATORVASTATIN 40 MG TAB PO SCH (21:54)
[2025-04-27] MEDS: INSULIN GLARGINE 100 UNITS/ML VIAL SQ SCH (22:09)
[2025-04-28 03:41] VITALS: BP 118/56; PULSE 60; RESP 18; TEMP 97.5; O2SAT 100
[2025-04-28 05:54] LABS: BASOPHILS % 0.4 % (0.0-1.0); EOSINOPHILS % 1.1 % (0.0-6.0); LYMPHOCYTES % 28.4 % (18.0-39.1); MONOCYTES % 8.8 % (4.4-11.3); NEUTROPHILS % 59.7 % (38.7-80.0); RED CELL DISTRIBUTION WIDTH 15.0 % (11.7-14.4)
[2025-04-28 06:32] LABS: EST GLOMERULAR FILTRATION RATE 65.0 ML/MIN (>=60)
[2025-04-28 06:45] LABS: PHOSPHORUS 2.6 MG/DL (2.3-4.7)
[2025-04-28] MEDS ORDERED: MAGNESIUM SULFATE 2GM/50ML IV SCH (07:45)
[2025-04-28 07:47] VITALS: BP 137/55; PULSE 64; RESP 18; TEMP 97.7; O2SAT 98
[2025-04-28] MEDS: ASPIRIN 81 MG CHEW TAB PO SCH (10:04)
[2025-04-28] MEDS: MAGNESIUM SULFATE 2GM/50ML 50 ML IV SCH (10:04)
[2025-04-28] MEDS: PANTOPRAZOLE SOD 40 MG TABEC PO SCH (10:05)
[2025-04-28] MEDS: CLOPIDOGREL BISULFATE 75 MG TAB PO SCH (10:05)
[2025-04-28] MEDS: METOPROLOL SUCCINATE 50 MG TAB XL PO SCH (10:06)
[2025-04-28 11:37] VITALS: BP 131/68; PULSE 62; RESP 18; TEMP 98.1; O2SAT 96
[2025-04-28 15:54] VITALS: BP 130/62; PULSE 86; RESP 18; TEMP 97.8; O2SAT 99
[2025-04-28] MEDS: POTASSIUM PHOSPHATE 20 MM in SODIUM CHLORIDE 0.9% 250ML 250 ML IV ONE (17:05)
[2025-04-28 20:00] VITALS: BP 130/62; PULSE 79; RESP 18; TEMP 97.8; O2SAT 99
[2025-04-28] MEDS: INSULIN GLARGINE 100 UNITS/ML VIAL SQ SCH (20:57)
[2025-04-29] VITALS: BP 150/77; PULSE 76; TEMP 98; O2SAT 100
[2025-04-29 06:36] LABS: EST GLOMERULAR FILTRATION RATE 61.0 ML/MIN (>=60); PHOSPHORUS 3.0 MG/DL (2.3-4.7)
[2025-04-29 09:00] VITALS: BP 149/73; PULSE 68; RESP 18; TEMP 98; O2SAT 100
[2025-04-29 09:23] VITALS: BP 149/73; PULSE 68; RESP 20; TEMP 98.9; O2SAT 100
== END 2025-04-29 11:20 | disposition home or self-care (01) | DRG 683 ==
LOC: FSED 21:38 → ERHOLD 23:13 → MED/SURG2 04-27 01:17
PROVIDERS: ADMIT Internal Medicine; ATTEND Internal Medicine
DX: N17.9 Acute kidney failure, unspecified (principal); I13.0 Hypertensive heart and chronic kidney disease with heart failure and stage 1 through stage 4 chronic kidney disease, or unspecified chronic kidney disease; N39.0 Urinary tract infection, site not specified; I50.22 Chronic systolic (congestive) heart failure; E86.0 Dehydration; E87.5 Hyperkalemia; E11.22 Type 2 diabetes mellitus with diabetic chronic kidney disease; I12.9 Hypertensive chronic kidney disease with stage 1 through stage 4 chronic kidney disease, or unspecified chronic kidney disease; N18.9 Chronic kidney disease, unspecified; J44.9 Chronic obstructive pulmonary disease, unspecified; I48.91 Unspecified atrial fibrillation; I25.10 Atherosclerotic heart disease of native coronary artery without angina pectoris; K21.9 Gastro-esophageal reflux disease without esophagitis; E78.5 Hyperlipidemia, unspecified; E11.65 Type 2 diabetes mellitus with hyperglycemia; D63.1 Anemia in chronic kidney disease; R63.0 Anorexia; T50.2X5A Adverse effect of carbonic-anhydrase inhibitors, benzothiadiazides and other diuretics, initial encounter; T50.1X5A Adverse effect of loop [high-ceiling] diuretics, initial encounter; T50.0X5A Adverse effect of mineralocorticoids and their antagonists, initial encounter; Z95.1 Presence of aortocoronary bypass graft; Z98.61 Coronary angioplasty status; Z95.2 Presence of prosthetic heart valve; Z79.82 Long term (current) use of aspirin; Z95.810 Presence of automatic (implantable) cardiac defibrillator; Z79.4 Long term (current) use of insulin; Z79.84 Long term (current) use of oral hypoglycemic drugs; I25.2 Old myocardial infarction; Z79.01 Long term (current) use of anticoagulants; Z79.02 Long term (current) use of antithrombotics/antiplatelets; Y92.009 Unspecified place in unspecified non-institutional (private) residence as the place of occurrence of the external cause; Z68.23 Body mass index [BMI] 23.0-23.9, adult
CPT/HCPCS: 0223U; 36415; 70450; 80048; 80053; 81001; 82550; 83036; 83518; 83735; 83880; 84100; 84443; 84484; 85025; 87400; 93005; 93306; 96374; 96375; 99252; 99284; J0696; J1938; J2405; J2470; J3475; J7030; J7050